=== PATIENT | female | born 1960 | race Caucasian/White ===

== ENCOUNTER 2017-03-10 15:45 | Inpatient (IN) | payer MEDICARE ==
[2017-03-10] MEDS ORDERED: Cefepime(*) 2 GM in NS 0.9% 50 ML* 50 ML IVPB ONE (16:38)
[2017-03-10 16:59] LABS: Urine Bacteria Absent (Absent); Urine Bilirubin Negative (Negative); Urine Glucose Negative (Negative); Urine Nitrite Negative (Negative)
[2017-03-10 17:11] LABS: Hematocrit 36 % (35-47); Mean Corpuscular HGB Conc 31 g/dl (31-36); Mean Corpuscular Hemoglobin 25 pg (27-31); Mean Corpuscular Volume 83 fL (80-97); Mean Platelet Volume 10 um3 (7.4-10.4); Red Blood Count 4.33 10^6/ul (4.0-5.4); Red Cell Distribution Width 16 % (10.5-15); White Blood Count 8.7 10^3/ul (3.5-10.8)
[2017-03-10] MEDS: NS 0.9% 1000 ML* 3,000 ML IV ONE (17:18)
[2017-03-10] MEDS ORDERED: Morphine INJ* 4 MG/ML 1 ML SYRINGE IV ONE (17:22)
[2017-03-10 17:26] LABS: Albumin 3.2 g/dL (3.2-5.2); Calcium 8.4 mg/dL (8.6-10.3); EGFR African American 11.7 (>60); EGFR Non-African American 9.1 (>60); Globulin 3.7 g/dL (2-4); Magnesium 2.2 mg/dL (1.9-2.7); Total Bilirubin 0.2 mg/dL (0.2-1.0); Total Protein 6.9 g/dL (6.4-8.9)
[2017-03-10 17:28] LABS: Troponin I 0.01 ng/mL (<0.04)
[2017-03-10 17:32] LABS: Potassium 6.9 mmol/L (3.5-5.0)
[2017-03-10 17:32] LABS: Benzodiazepine Urine Screen Presumptive Positive (None Detect)
[2017-03-10] MEDS ORDERED: Insulin REGULAR(*) 1 UNITS UNIT IV PUSH ONE (17:42)
[2017-03-10] MEDS ORDERED: Dextrose 50% Syringe 50 ML* 25 GM/50 ML SYRINGE IV PUSH ONE (17:43)
[2017-03-10] MEDS ORDERED: Sodium Bicarbonate 8.4% IV* 50 ML VIAL IV ONE (17:43)
[2017-03-10 18:01] LABS: BUN/Creatinine Ratio 16.9 (8-20); Calcium 7.8 mg/dL (8.6-10.3); EGFR African American 12.7 (>60); EGFR Non-African American 9.8 (>60)
[2017-03-10 18:05] LABS: Potassium 6.8 mmol/L (3.5-5.0)
--- NOTE | 2017-03-10 18:17 | RAD ---
Indication: Confusion. CT of the brain was performed without IV contrast. Ventricular structures are midline. No midline shift is noted. The extra-axial spaces are unremarkable. There is no evidence of mass or hemorrhage. No other high or low density lesions are identified. Mastoid air cells are somewhat hypoplastic although no fluid is noted. The paranasal sinuses are unremarkable. Bony calvaria is unremarkable. IMPRESSION: No intracranial mass or hemorrhage is noted.
--- NOTE | 2017-03-10 18:35 | RAD ---
Indication: Fever, shortness of breath. Single frontal view of the chest performed at 1755 hours was reviewed. No prior study is available for comparison. No mediastinal shift is noted. Heart is of normal size and configuration. Lung king appear clear. IMPRESSION: NO ACTIVE CARDIOPULMONARY DISEASE IS NOTED.
--- NOTE | 2017-03-10 18:51 | RAD ---
Indication: Acute kidney injury. Real-time sonography of the kidneys was performed. The right kidney measures 11.2 x 5.8 x 5.4 cm. No hydronephrosis is noted. There may be tiny calculi noted in the right kidney. The left kidney measures 10.5 x 4.3 x 4.6 cm. No hydronephrosis is noted. IMPRESSION: Suggestion of small nonobstructing calculi in the right kidney. No hydronephrosis of either kidney.
--- NOTE | 2017-03-10 18:54 | ED ---
Isatu Vaughn Alfonso, scribed for Sohail Walton MD on 03/10/17 at 1702 . Altered Mental Status - HPI Summary HPI Summary: This patient is a level 5 caveat due to AMS. This patient is a 57 y.o F [facility] for confusion since earlier today. Family states pt not being herself. She is not oriented to time. Family member reports pt c/o been numb all over, decreased responsiveness, confusion, diarrhea, decreased appetite, and no pain. The diarrhea has since resolved. They also report no headache, cough, or rash. Sx alleviated and aggravated by nothing. [facility] medical record indicates that she overdosed and was intubated. Pt is being treated for UTI two strains of bacteria and antibiotic doses have been recently increased. PMHx of diabetes , CAD, and current broken right shoulder. - History Of Current Complaint Chief Complaint: EDGeneral Stated Complaint: GENERAL ILLNESS Time Seen by Provider: 03/10/17 16:08 Hx Obtained From: Patient, Family/Thai Masseur, Medical Records Onset/Duration: Unknown Timing: Constant Aggravating Factor(s): Nothing Alleviating Factor(s): Nothing Associated Signs And Symptoms: Negative: Nuchal Rigity - Allergies/Home Medications Allergies/Adverse Reactions: Allergies Allergy/AdvReac Type Severity Reaction Status Date / Time Coconut Flavor Allergy Unknown Verified 03/10/17 15:59 Reaction Details Penicillins Allergy Unknown Verified 03/10/17 15:59 Reaction Details Sulfa Antibiotics Allergy Unknown Verified 03/10/17 15:59 Reaction Details seafood Allergy Unknown Uncoded 03/10/17 15:59 Reaction Details PMH/Surg Hx/FS Hx/Imm Hx Endocrine/Hematology History: Reports: Hx Diabetes Cardiovascular History: Reports: Hx Coronary Artery Disease, Hx Hypertension Respiratory History: Reports: Hx Chronic Obstructive Pulmonary Disease (COPD) Sensory History: Denies: Hx Deafness Opthamlomology History: Denies: Hx Legally Blind Infectious Disease History: Unable to Obtain/Confirm Infectious Disease History: Denies: Traveled Outside the [place] in Last 30 Days - Family History Known Family History: Positive: Diabetes - Uncle and Aunt on father's side - Social History Alcohol Use: None Hx Substance Use: No Substance Use Type: Reports: None Hx Tobacco Use: No Smoking Status (MU): Never Smoked Tobacco Review of Systems - ROS Summary Review of Systems Summary: This patient is a level 5 caveat due to AMS. Negative: Cough Positive: Other - Broken right shoulder Negative: Rash Neurological: Other - numb all over, decreased responsiveness, confusion, decreased appetite, and no pain Negative: Headache All Other Systems Reviewed And Are Negative: No Physical Exam - Summary Physical Exam Summary: This patient is a level 5 caveat due to AMS. The patient is well-nourished in mild distress and in no acute pain. The skin is warm, diaphoretic, and skin color reflects adequate perfusion. Not cyanotic. HEENT: The head is normocephalic and atraumatic. The pupils are equal and reactive. The conjunctivae are clear and without drainage. Nares are patent and without drainage. Mouth reveals dry mucous membranes and the throat is without erythema and exudate. The external ears are intact. The ear canals are patent and without drainage. The tympanic membranes are intact. Neck is supple with full range of motion and non-tender. There are no carotid bruits. There is no neck vein distension. No nuchal rigidity. Respiratory: Chest is non-tender. Lungs are clear to auscultation and breath sounds are symmetrical and equal. Cardiovascular: Hear is regular rate and rhythm. There is no murmur or rub auscultated. There is no peripheral edema and pulses are symmetrical and equal. Abdomen: The abdomen is soft and non-tender. There are normal bowel sounds heard in all four quadrants and there is no organomegaly palpated. Obsese Musculoskeletal: There is no back pain noted. Extremities are non-tender with full range of motion. There is good capillary refill. There is no peripheral edema or calf tenderness elicited. Neurological: Patient is alert and oriented to person, and place. Not oriented to time. The patient has symmetrical motor strength in all four extremities. Cranial nerves are grossly intact. Deep tendon reflexes are symmetrical and equal in all four extremities. Psychiatric: The patient is confused, and disoriented. Unable to answer questions and follow commands. Triage Information Reviewed: Yes Vital Signs On Initial Exam: Initial Vitals Temp Pulse Resp BP Pulse Ox 99.2 F 90 20 130/48 97 03/10/17 15:52 03/10/17 15:52 03/10/17 15:52 03/10/17 15:52 03/10/17 15:52 Vital Signs Reviewed: Yes Completion Of Physical Exam Limited Due To: Altered Mental Status Diagnostics - Vital Signs Vital Signs Temp Pulse Resp BP Pulse Ox 03/10/17 16:05 89 113/52 98 03/10/17 16:01 90 98 03/10/17 16:00 98/76 03/10/17 15:52 99.2 F 90 20 130/48 97 - Laboratory Lab Results: Lab Results 03/10/17 Range/Units 16:03 POC Glucose (mg/dL) 208 H (74-106) mg/dL Result Diagrams: 03/10/17 16:55 03/10/17 17:38 Lab Statement: Any lab studies that have been ordered have been reviewed, and results considered in the medical decision making process. - Radiology CXR Xray Interpretation: No Acute Changes Radiology Interpretation Completed By: Radiologist - CT CT Brain CT Interpretation: No Acute Changes - No intracranial mass or hemorrhage noted. CT Interpretation Completed By: Radiologist - EKG 1736 EKG Rhythm: Sinus Rhythm - BPM 91 EKG Interpretation: Poor R wave progression, normal axis Re-Evaluation - Re-Evaluation First Eval Re-Evaluation Time: 18:00 - Discussed blood work and possible plan of care with family members Change: Unchanged Altered Mental Statu Course/Dx - Course Assessment/Plan: Pt presents with confusion and AMS. Upon examination, pt is noted with disorientation in regard to time, and unable to answer questions or follow commands. Family members present at bedside reports persistent UTI with recent increase in abx dose and recent right shoulder fx. Medical records from [facility] also provides further collaterals regarding recent OD and intubation. CT Brain indicates negative intracranial mass or hemorrhage. CXR is also benign. Blood work indicates hyperkalemia of 6.9 and CO2 of 13. UA is noted UTI with 3+ WBC and positive leuk. Bloodwork is shared with hospitalist, who accepts admission of pt. pt was treated for uti initially with Cefapime. pt was given IV fluid. pt was treated with Calcium Gluconate, D50, insulin and sodium bicarbonate. Dr. smalls was notified and agreed to admit the patient. her old records were reviewed. - Diagnoses Differential Diagnosis/HQI/PQRI: Hypoglycemia, Hypoxia, Intracranial Bleed, Medication Reaction, Metabolic Disorder, Sepsis, Other - substance abuse, acute renal failure, hyperkalemia, dehydration, c.diff colitis, UTI Discharge Diagnoses: UTI (urinary tract infection), Acute renal failure, Hyperkalemia, Dehydration, Altered mental status - Provider Notifications Discussed Care Of Patient With: Tami Smalls - Possible admission after the offical CT and CXR imaging readings. Time Discussed With Above Provider: 17:55 Instructed by Provider To: Admit As Inpatient - Critical Care Time Critical Care Time: 30-74 min - 45 Minutes Discharge - Discharge Plan Condition: Stable Disposition: ADMITTED TO [facility] Referrals: No Primary Care Phys,NOPCP [Primary Care Provider] - The documentation as recorded by the Isatu torres Alfonso accurately reflects the service I personally performed and the decisions made by me, Sohail Walton MD.
[2017-03-10] MEDS ORDERED: Calcium Gluconate INJ* 1 GM in NS 0.9% 50 ML* 50 ML IVPB ONE (19:00)
[2017-03-10] MEDS ORDERED: levETIRAcetam TAB* 500 MG PO SCH (21:00)
[2017-03-10 21:22] LABS: BUN/Creatinine Ratio 17.1 (8-20); Calcium 7.9 mg/dL (8.6-10.3); EGFR African American 13.7 (>60); EGFR Non-African American 10.6 (>60)
[2017-03-10] MEDS ORDERED: NS 0.9% 1000 ML* 2,000 ML IV ONE (21:36)
[2017-03-10] MEDS ORDERED: Morphine INJ* 4 MG/ML 1 ML SYRINGE IV PRN (21:38)
[2017-03-10] MEDS: Albuterol/Ipratropium NEB.SOL* Albuterol 2.5 MG/Ipratropium 0.5 MG 3 ML INH SCH (21:58)
[2017-03-10] MEDS: Heparin VIAL(*) 5000 UNITS/ML VIAL (FIVE THOUSAND) SUBCUT SCH (22:24)
[2017-03-10] MEDS: Gabapentin CAP(*) 300 MG PO SCH (23:15)
[2017-03-11] MEDS ORDERED: oxyCODONE TAB* 5 MG TAB PO SCH
[2017-03-11] MEDS: levETIRAcetam 500 MG IVPREMIX* 500 MG/100 ML BAG IV SCH ×3 (00:19→23:44)
[2017-03-11 00:53] LABS: BUN/Creatinine Ratio 19.3 (8-20); EGFR Non-African American 13.3 (>60); Potassium 5.5 mmol/L (3.5-5.0)
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
[2017-03-11] MEDS: Albuterol/Ipratropium NEB.SOL* Albuterol 2.5 MG/Ipratropium 0.5 MG 3 ML INH SCH ×2 (01:35→05:20)
[2017-03-11] MEDS ORDERED: oxyCODONE TAB* 5 MG TAB PO PRN (04:51)
[2017-03-11] MEDS: NS 0.9% 1000 ML* 1,000 ML IV SCH ×4 (05:30→22:51)
[2017-03-11 05:36] LABS: Hematocrit 28 % (35-47); Hemoglobin 8.9 g/dl (12.0-16.0); Mean Corpuscular HGB Conc 31 g/dl (31-36); Mean Corpuscular Hemoglobin 26 pg (27-31); Mean Corpuscular Volume 82 fL (80-97); Mean Platelet Volume 10 um3 (7.4-10.4); Red Blood Count 3.47 10^6/ul (4.0-5.4); Red Cell Distribution Width 16 % (10.5-15); White Blood Count 7.5 10^3/ul (3.5-10.8)
[2017-03-11 05:50] LABS: BUN/Creatinine Ratio 19.8 (8-20); Calcium 7.4 mg/dL (8.6-10.3); EGFR African American 18.4 (>60); EGFR Non-African American 14.3 (>60); Potassium 5.8 mmol/L (3.5-5.0)
[2017-03-11] MEDS: Levothyroxine TAB* 100 MCG TAB PO SCH (05:53)
[2017-03-11] MEDS: Heparin VIAL(*) 5000 UNITS/ML VIAL (FIVE THOUSAND) SUBCUT SCH ×3 (05:53→21:57)
[2017-03-11] MEDS: Levothyroxine TAB* 75 MCG TAB PO SCH (05:53)
[2017-03-11] MEDS ORDERED: Albuterol/Ipratropium NEB.SOL* Albuterol 2.5 MG/Ipratropium 0.5 MG 3 ML INH PRN (08:56)
[2017-03-11] MEDS ORDERED: Levothyroxine TAB (NF) 175 MCG TAB (AUTOSUB 100 MCG + 75 MCG TAB) PO SCH (09:00)
[2017-03-11] MEDS: cefTRIAXone VIAL(*) 1,000 MG in NS 0.9% 50 ML* 50 ML IVPB SCH (09:13)
[2017-03-11] MEDS: Omeprazole CAP* 20 MG PO SCH (09:16)
[2017-03-11] MEDS: amLODIPine TAB* 5 MG PO SCH ×2 (09:16→12:10)
[2017-03-11] MEDS: Atenolol TAB* 50 MG PO SCH (09:16)
[2017-03-11] MEDS: Gabapentin CAP(*) 300 MG PO SCH ×3 (09:16→21:57)
[2017-03-11] MEDS: Insulin LISPRO* 1 UNITS UNIT SUBCUT SCH ×3 (09:17→18:27)
--- NOTE | 2017-03-11 09:59 | PN ---
Subjective Date of Service: 03/11/17 Interval History: This is a 57 yo female with HTN, HLD, mild developmental delay, seizure d/o DM and h/o drug abuse who [facility] a R humeral fx following a hospitalization at [facility]. Patient was found unresponsive with SHYAM and subsequent hyperkalemia. Patient was recently treated for UTI and developed diarrhea. SHYAM thought to be due to hypovolemia and ADELAIDA-I use. Patient has been responsive to voice, able to take oral medications last night. This am, more sedated after requesting pain medications, not taking anything orally. Urine output looks good. No acute changes overnight. Objective Active Medications: Acetaminophen (Tylenol Tab*) 325 mg PO Q6HR PRN PRN Reason: pain Albuterol/Ipratropium (Duoneb (Albuterol 2.5 Mg/Ipratropium 0.5 Mg)) 1 neb INH Q4H PRN PRN Reason: SOB/WHEEZING Alprazolam (Xanax Tab*) 0.25 mg PO TID PRN PRN Reason: ANXIETY Amlodipine Besylate (Norvasc Tab*) 5 mg PO DAILY [facility] Last Admin: 03/11/17 09:16 Dose: 5 mg Atenolol (Tenormin Tab*) 50 mg PO DAILY [facility] Last Admin: 03/11/17 09:16 Dose: 50 mg Gabapentin (Neurontin Cap(*)) 300 mg PO TID [facility] Last Admin: 03/11/17 09:16 Dose: Not Given Heparin Sodium (Porcine) (Heparin Vial(*)) 5,000 units SUBCUT Q8HR [facility] Last Admin: 03/11/17 05:53 Dose: 5,000 units Ceftriaxone Sodium 1,000 mg/ (Sodium Chloride) 50 mls @ 200 mls/hr IVPB Q24H [facility] Last Admin: 03/11/17 09:13 Dose: 200 mls/hr Sodium Chloride (Ns 0.9% 1000 Ml*) 1,000 mls @ 150 mls/hr IV PER RATE [facility] Last Admin: 03/11/17 05:30 Dose: 150 mls/hr Levetiracetam (Keppra Iv Premix*) 500 mg in 100 mls @ 400 mls/hr IV Q12H [facility] Last Admin: 03/11/17 00:19 Dose: 400 mls/hr Insulin Human Lispro (Humalog*) 0 units SUBCUT AC [facility] PRN Reason: Protocol Last Admin: 03/11/17 09:17 Dose: Not Given Levothyroxine Sodium (Synthroid Tab*) 100 mcg PO DAILY@0600 [facility] Last Admin: 03/11/17 05:53 Dose: 100 mcg Levothyroxine Sodium (Synthroid Tab*) 75 mcg PO DAILY@0600 [facility] Last Admin: 03/11/17 05:53 Dose: 75 mcg Morphine Sulfate (Morphine Inj (Syringe)*) 4 mg IV Q4H PRN PRN Reason: PAIN Omeprazole (Prilosec Cap*) 20 mg PO DAILY [facility] Last Admin: 03/11/17 09:16 Dose: 20 mg Oxycodone HCl (Roxycodone Tab*) 5 mg PO Q6HR PRN PRN Reason: PAIN Vital Signs: Temp Pulse Resp BP Pulse Ox 98.9 F 88 12 134/84 93 03/11/17 06:00 03/11/17 08:57 03/11/17 08:57 03/11/17 06:00 03/11/17 08:57 Appearance: Middle aged female who is sedated, but responds to voice and touch. NAD Respiratory: Symmetrical Chest Expansion and Respiratory Effort, Clear to Auscultation Cardiovascular: NL Sounds; No Murmurs; No JVD, RRR Abdominal: NL Sounds; No Tenderness; No Distention Skin: No Rash or Ulcers Neurological: - - sedated, but arousable Result Diagrams: 03/11/17 05:25 03/11/17 05:25 Additional Lab and Data: Laboratory Tests 03/10/17 03/10/17 03/10/17 16:55 17:38 20:55 Potassium 6.9 H* 6.8 H* 6.0 H 03/11/17 03/11/17 00:30 05:25 Potassium 5.5 H 5.8 H Microbiology and Other Data: Microbiology 03/10/17 20:00 Nasal Screen MRSA (PCR)(MARY) - Final Nasal Mrsa Negative Assess/Plan/Problems-Billing Assessment: This is a 57 yo female with mild intellectual disability, sz d/o, HTN, mild MR, h/o drug abuse, DM and recent R humeral fracture admitted with acute encephalopathy, SHYAM, and hyperkalemia. - Patient Problems (1) Acute encephalopathy Comment: Likely metabolic secondary to uremia related to SHYAM Seems to be improving mildly (2) SHYAM (acute kidney injury) Comment: Likely combination of ATN/prerenal from GI losses related to abx use and ADELAIDA-I use Associated acidosis and hyperkalemia Improving with IV hydration, received NaHCO3, calcium gluconate, insulin/D50 in ER No tele changes Cont serial labs and IVF hydration with NS (3) UTI (urinary tract infection) Comment: Cultures pending Tx with ceftriaxone (4) Humeral fracture Comment: Reviewed notes from [facility] and [facility] Appeared to be an incidental finding on imaging Immobilized, no surgical intervention (5) Mild developmental delay (6) H/O drug abuse Comment: Cocaine/opiate abuse Notes from [facility] reported she has been requesting very high doses of opiates during her stay there (7) Diabetes Comment: No home medications Check HgbA1c Monitor glucose finger checks and cover prn with Humalog (8) Full code status (9) DVT prophylaxis Comment: SQ heparin Status and Disposition: Inpatient. Cont ICU level care.
[2017-03-11 12:22] LABS: BUN/Creatinine Ratio 21.7 (8-20); Calcium 6.8 mg/dL (8.6-10.3); EGFR African American 21.7 (>60); EGFR Non-African American 16.8 (>60); Potassium 5.4 mmol/L (3.5-5.0)
[2017-03-11] MEDS ORDERED: Sodium Bicarbonate 8.4%* 50 ML SYRINGE IV ONE (12:38)
[2017-03-11] MEDS: ALPRAZolam TAB* 0.25 MG PO PRN (16:37)
[2017-03-11] MEDS: oxyCODONE TAB* 5 MG TAB PO PRN (16:37)
[2017-03-11] MEDS ORDERED: Vancomycin per Pharmacy* NOTE FOLLOW UP PRN (17:26)
[2017-03-11 17:52] LABS: BUN/Creatinine Ratio 23.6 (8-20); Calcium 7.5 mg/dL (8.6-10.3); EGFR African American 22.9 (>60); EGFR Non-African American 17.8 (>60); Potassium 5.7 mmol/L (3.5-5.0)
[2017-03-11] MEDS ORDERED: Vancomycin(*) 1,250 MG in NS 0.9% 250 ML* 250 ML IVPB ONE (18:00)
[2017-03-11] MEDS ORDERED: Dextrose 50% Syringe 50 ML* 25 GM/50 ML SYRINGE IV PUSH ONE (18:15)
[2017-03-11] MEDS ORDERED: Dextrose 50% Syringe 50 ML* 25 GM/50 ML SYRINGE ONE (18:21)
[2017-03-11 20:22] LABS: TSH (Thyroid Stimulating Horm) 0.96 mcIU/mL (0.34-5.60)
--- NOTE | 2017-03-11 20:26 | RAD ---
INDICATION: Traumatic fracture of the right shoulder. COMPARISON: There are no prior studies available for comparison. TECHNIQUE: 3 views of the right shoulder were obtained. FINDINGS: The humeral head appears subluxed inferior relative to the glenoid process of the scapula. There is a comminuted fracture of the proximal humeral metaphysis and head. This is somewhat unusual with displaced fracture fragments located both superior and inferior medial to the humeral head and metaphysis. Incidental note is made of an os acromiale. IMPRESSION: 1. INFERIOR SUBLUXATION OF THE HUMERAL HEAD. 2. COMMINUTED DISPLACED FRACTURE OF THE HUMERAL HEAD AND METAPHYSIS NOT WELL-DEFINED ON THIS STUDY. RECOMMEND A CT OF THE RIGHT SHOULDER FOR FURTHER EVALUATION.
[2017-03-11 20:29] LABS: Free T4 1.46 ng/dL (0.61-1.12)
[2017-03-11 20:38] LABS: BUN/Creatinine Ratio 24.7 (8-20); Calcium 7.3 mg/dL (8.6-10.3); EGFR African American 26.6 (>60); EGFR Non-African American 20.7 (>60)
[2017-03-11 20:46] LABS: Potassium 5.4 mmol/L (3.5-5.0)
[2017-03-12] MEDS: oxyCODONE TAB* 5 MG TAB PO PRN ×4 (00:16→21:11)
[2017-03-12 01:10] LABS: Blood Urea Nitrogen 54 mg/dL (6-24); CO2 Carbon Dioxide 17 mmol/L (22-32); Calcium 7.4 mg/dL (8.6-10.3); Chloride 125 mmol/L (101-111); EGFR African American 31.8 (>60); EGFR Non-African American 24.7 (>60); Glucose 167 mg/dL (70-100); Sodium 144 mmol/L (133-145)
[2017-03-12 05:15] LABS: BUN/Creatinine Ratio 26.5 (8-20); Blood Urea Nitrogen 48 mg/dL (6-24); CO2 Carbon Dioxide 17 mmol/L (22-32); Calcium 7.1 mg/dL (8.6-10.3); Chloride 123 mmol/L (101-111); EGFR African American 37.3 (>60); Glucose 191 mg/dL (70-100); Sodium 142 mmol/L (133-145)
[2017-03-12] MEDS ORDERED: Vancomycin Random Level* NOTE FOLLOW UP ONE (06:00)
[2017-03-12] MEDS: Heparin VIAL(*) 5000 UNITS/ML VIAL (FIVE THOUSAND) SUBCUT SCH ×3 (06:06→21:11)
[2017-03-12] MEDS: Levothyroxine TAB* 75 MCG TAB PO SCH (06:06)
[2017-03-12] MEDS: Levothyroxine TAB* 100 MCG TAB PO SCH (06:06)
[2017-03-12] MEDS: NS 0.9% 1000 ML* 1,000 ML IV SCH ×2 (06:09→16:51)
[2017-03-12] MEDS: Insulin LISPRO* 1 UNITS UNIT SUBCUT SCH ×3 (08:19→16:48)
[2017-03-12] MEDS ORDERED: Vancomycin(*) 1,250 MG in NS 0.9% 250 ML* 250 ML IVPB SCH (08:30)
[2017-03-12] MEDS: cefTRIAXone VIAL(*) 1,000 MG in NS 0.9% 50 ML* 50 ML IVPB SCH (08:34)
[2017-03-12] MEDS: Atenolol TAB* 50 MG PO SCH (08:35)
[2017-03-12] MEDS: amLODIPine TAB* 5 MG PO SCH (08:35)
[2017-03-12] MEDS: Gabapentin CAP(*) 300 MG PO SCH ×3 (08:35→19:24)
[2017-03-12] MEDS: Omeprazole CAP* 20 MG PO SCH (08:35)
--- NOTE | 2017-03-12 08:35 | PN ---
Subjective Date of Service: 03/12/17 Interval History: Patient's mental status has improved, she is still confused about her present situation. But alert and communicative Objective Active Medications: Acetaminophen (Tylenol Tab*) 325 mg PO Q6HR PRN PRN Reason: pain Albuterol/Ipratropium (Duoneb (Albuterol 2.5 Mg/Ipratropium 0.5 Mg)) 1 neb INH Q4H PRN PRN Reason: SOB/WHEEZING Alprazolam (Xanax Tab*) 0.25 mg PO TID PRN PRN Reason: ANXIETY Last Admin: 03/11/17 16:37 Dose: 0.25 mg Amlodipine Besylate (Norvasc Tab*) 5 mg PO DAILY [facility] Last Admin: 03/11/17 12:10 Dose: Not Given Atenolol (Tenormin Tab*) 50 mg PO DAILY [facility] Last Admin: 03/11/17 09:16 Dose: Not Given Gabapentin (Neurontin Cap(*)) 300 mg PO TID [facility] Last Admin: 03/11/17 21:57 Dose: 300 mg Heparin Sodium (Porcine) (Heparin Vial(*)) 5,000 units SUBCUT Q8HR [facility] Last Admin: 03/12/17 06:06 Dose: 5,000 units Ceftriaxone Sodium 1,000 mg/ (Sodium Chloride) 50 mls @ 200 mls/hr IVPB Q24H [facility] Last Admin: 03/11/17 09:13 Dose: 200 mls/hr Sodium Chloride (Ns 0.9% 1000 Ml*) 1,000 mls @ 150 mls/hr IV PER RATE [facility] Last Admin: 03/12/17 06:09 Dose: 150 mls/hr Levetiracetam (Keppra Iv Premix*) 500 mg in 100 mls @ 400 mls/hr IV Q12H [facility] Last Admin: 03/11/17 23:44 Dose: 400 mls/hr Vancomycin HCl 1,250 mg/ (Sodium Chloride) 250 mls @ 166.667 mls/hr IVPB Q12H [facility] Insulin Human Lispro (Humalog*) 0 units SUBCUT AC YURIY PRN Reason: Protocol Last Admin: 03/12/17 08:19 Dose: Not Given Levothyroxine Sodium (Synthroid Tab*) 100 mcg PO DAILY@0600 [facility] Last Admin: 03/12/17 06:06 Dose: 100 mcg Levothyroxine Sodium (Synthroid Tab*) 75 mcg PO DAILY@0600 [facility] Last Admin: 03/12/17 06:06 Dose: 75 mcg Morphine Sulfate (Morphine Inj (Syringe)*) 4 mg IV Q4H PRN PRN Reason: PAIN Omeprazole (Prilosec Cap*) 20 mg PO DAILY [facility] Last Admin: 03/11/17 09:16 Dose: Not Given Oxycodone HCl (Roxycodone Tab*) 5 mg PO Q6HR PRN PRN Reason: PAIN Last Admin: 03/12/17 00:16 Dose: 5 mg Pharmacy Consult (Vancomycin Per Pharmacy*) 1 note FOLLOW UP . PRN PRN Reason: PER PROTOCOL Pharmacy Profile Note (Vancomycin Trough Check) 1 note FOLLOW UP 0800 ONE Stop: 03/14/17 08:01 Vital Signs: Temp Pulse Resp BP Pulse Ox 94.6 F 96 11 140/65 95 03/12/17 07:00 03/12/17 07:00 03/12/17 07:00 03/12/17 07:00 03/12/17 07:00 Appearance: Well appearing middle aged female in NAD Respiratory: Symmetrical Chest Expansion and Respiratory Effort, Clear to Auscultation Cardiovascular: NL Sounds; No Murmurs; No JVD, RRR Abdominal: NL Sounds; No Tenderness; No Distention Extremities: No Edema Neurological: - - alert, somewhat confused, tangential thoughts, somewhat paranoid Result Diagrams: 03/11/17 05:25 03/12/17 06:25 Additional Lab and Data: Laboratory Tests 03/10/17 03/10/17 03/10/17 16:55 17:38 20:55 Potassium 6.9 H* 6.8 H* 6.0 H 03/11/17 03/11/17 00:30 05:25 Potassium 5.5 H 5.8 H Microbiology and Other Data: Microbiology 03/10/17 20:00 Nasal Screen MRSA (PCR)(MARY) - Final Nasal Mrsa Negative Diagnostic Imaging: XR shoulder - comminuted and displaced fracture of humeral head with subluxation Assess/Plan/Problems-Billing Assessment: This is a 57 yo female with mild intellectual disability, sz d/o, HTN, mild MR, h/o drug abuse, DM and recent R humeral fracture admitted with acute encephalopathy, SHYAM, and hyperkalemia. - Patient Problems (1) Acute encephalopathy Comment: Improving Likely metabolic secondary to uremia related to SHYAM (2) SHYAM (acute kidney injury) Comment: Improving Likely combination of ATN/prerenal from GI losses related to abx use and ADELAIDA-I use Associated acidosis and hyperkalemia Improving with IV hydration, received NaHCO3, calcium gluconate, insulin/D50 in ER No tele changes Cont serial labs and IVF hydration with NS (3) UTI (urinary tract infection) Comment: Initial culture growing S. aureus Added vanco until final sensitivities return (4) Humeral fracture Comment: Reviewed notes from [facility] Appeared to be an incidental finding on imaging Immobilized, no surgical intervention Patient c/o increased pain XR shows comminuted and displaced fracture of humeral head with subluxation, subluxation may be new and responsible for increased pain Requesting more imaging and ortho notes from [facility] Requested ortho consult (5) Hypothyroidism Comment: TSH, free T4 WNL Cont current dose of levothyroxine (6) Mild developmental delay (7) H/O drug abuse Comment: Cocaine/opiate abuse Notes from [facility] reported she has been requesting very high doses of opiates during her stay there (8) Diabetes Comment: No home medications HgbA1c pend Monitor glucose finger checks and cover prn with Humalog (9) Full code status (10) DVT prophylaxis Comment: SQ heparin Status and Disposition: Inpatient. Transfer to telemetry floor from ICU
[2017-03-12] MEDS: levETIRAcetam TAB* 500 MG PO SCH ×2 (08:59→19:24)
[2017-03-12] MEDS: Acetaminophen TAB* 325 MG PO PRN (12:33)
--- NOTE | 2017-03-12 12:57 | RAD ---
Indication: RIGHT shoulder pain. Previous fracture. Assess for extent of fracture healing. Renal failure. Comparison: March 11, 2017 radiographs. Technique: Noncontrast CT RIGHT shoulder. Multiplanar reformation. Report: Normal, clavicular joint alignment. Normal variant os acromiale. Impacted fracture at the surgical through anatomic neck of the humerus with approximate 30 degrees apex anterior angulation. The fracture extends to the lesser and greater tuberosities. Osseous remodeling along the comminuted fracture plane with healing response. The humeral head remains grossly located at the glenoid fossa. Large burden of dystrophic bone formation along the course of the rotator cuff tendons and muscles with involvement of the subscapularis, supraspinatus, infraspinatus, and teres minor. Moderate subscapularis muscle atrophy. IMPRESSION: 1. Healing response at the comminuted impacted surgical through anatomic neck fracture of the humerus. 2. Large burden of dystrophic bone formation along the course of the rotator cuff tendons and muscles with involvement of the subscapularis, supraspinatus, infraspinatus, and teres minor.
--- NOTE | 2017-03-12 13:33 | CONS ---
CONSULTATION REPORT: DATE OF CONSULTATION: 03/12/17 BRIEF HISTORY: I was called by the hospitalist Atul regarding Laura Person , a 57-year-old female who has a proximal humerus fracture that occurred approximately 4 weeks prior to this call. The story, as I have been able to cover in looking at the Ta note, is that the patient was initially seen at [facility] on or about 02/10/17. She was found unresponsive allegedly at her home by her father and was having seizure-like activity. She had no previous history of seizure. According to the note, she was taken to [facility] where she was agitated and received Haldol and her urine drug screen came back positive for cocaine as well as "benzos and opiates." She was in respiratory distress and she was hypertensive and tachypneic and she was subsequently transferred to [facility] by helicopter. She was intubated and treated. During the course of her hospitalization at [facility], it was noted that she had an orthopedic injury. She was seen and evaluated by physician pediatric physical therapy assistant, Mp Clarke, who was supervised by upper extremity specialist and packer fuser of the orthopedic department, Dr. Kendrick Thorne. The x-ray evaluation revealed a 3-part proximal humerus fracture that was comminuted and intraarticular. The orthopedic plan at that time according to Mp Clarke's note was that the right upper extremity was in good alignment and she had a good radial pulse. The plan was for her to be treated with a sling and that she would have repeat x-rays in 5 to 7 days and surgical intervention was not entertained at that time. She was apparently lost to followup in [place], that is she for whatever reason did not seek further followup in [place] and presented at [facility] whereupon Dr. Pollard gave me a call. I took a look at the x-rays. I was speaking to Dr. Pollard and indeed, the patient does have a comminuted 3-part proximal humerus fracture that I believe at this point is most likely not amenable to open reduction internal fixation and is more likely amenable to a proximal humerus replacement. I explained to Dr. Pollard that that is not a procedure that I perform and however, I will be more than happy to facilitate the patient being seen by one of my orthopedic partners upon the patient's discharge. Dr. Pollard stated that she believes the patient wish to stay in the [facility] and with that I suggested that if that was the case, then Dr. Pollard contact one of the [facility] orthopedists that specializes in upper extremity/ shoulder care and at this point I believe Dr. Pollard will take my suggestion. If the [facility] orthopedic surgeons do not wish to be involved with the case, I am more than happy to make Dr. Thorne aware that the patient is still in need of care and will make every effort to get the patient to be seen and treated by Dr. Kendrick Thorne, our shoulder specialist. [id number]/CPS #: [id number] MTDD
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
[2017-03-12] MEDS: ALPRAZolam TAB* 0.25 MG PO PRN (19:24)
[2017-03-13] MEDS: NS 0.9% 1000 ML* 1,000 ML IV SCH ×2 (01:07→09:12)
[2017-03-13] MEDS: Acetaminophen TAB* 325 MG PO PRN ×2 (01:37→08:30)
[2017-03-13] MEDS: oxyCODONE TAB* 5 MG TAB PO PRN (03:10)
[2017-03-13] MEDS: ALPRAZolam TAB* 0.25 MG PO PRN (04:03)
[2017-03-13] MEDS: Levothyroxine TAB* 100 MCG TAB PO SCH (05:03)
[2017-03-13] MEDS: Levothyroxine TAB* 75 MCG TAB PO SCH (05:03)
[2017-03-13] MEDS: Heparin VIAL(*) 5000 UNITS/ML VIAL (FIVE THOUSAND) SUBCUT SCH (05:04)
[2017-03-13 05:43] LABS: BUN/Creatinine Ratio 25.5 (8-20); Calcium 7.3 mg/dL (8.6-10.3); EGFR African American 75.8 (>60); EGFR Non-African American 58.9 (>60); Potassium 4.1 mmol/L (3.5-5.0)
[2017-03-13] MEDS: Insulin LISPRO* 1 UNITS UNIT SUBCUT SCH ×2 (08:20→12:00)
[2017-03-13] MEDS: Omeprazole CAP* 20 MG PO SCH (08:30)
[2017-03-13] MEDS: levETIRAcetam TAB* 500 MG PO SCH (08:30)
[2017-03-13] MEDS: amLODIPine TAB* 5 MG PO SCH (08:30)
[2017-03-13] MEDS: Gabapentin CAP(*) 300 MG PO SCH (08:31)
[2017-03-13] MEDS: cefTRIAXone VIAL(*) 1,000 MG in NS 0.9% 50 ML* 50 ML IVPB SCH (08:43)
[2017-03-13] MEDS: Atenolol TAB* 50 MG PO SCH (08:44)
[2017-03-13] MEDS ORDERED: oxyCODONE TAB* 5 MG TAB PO PRN (09:58)
[2017-03-13 10:48] VITALS: BP 149/69
--- NOTE | 2017-03-13 11:28 | DS ---
CC: [facility]; Dr. Fajardo * DATE OF ADMISSION: 03/10/2017. DATE OF DISCHARGE: 03/13/2017. PRIMARY CARE PROVIDER: Not listed. CONSULTING ORTHOPEDIC SURGEON: Dr. Fajardo. DISCHARGING PROVIDER: SEDRICK Hendrix. SUPERVISING PHYSICIAN: Dr. Kai Phillips *(dictated by SEDRICK Hendrix). PRIMARY DISCHARGE DIAGNOSES: 1. Acute metabolic encephalopathy secondary to uremia secondary to acute kidney injury. 2. Acute kidney injury - likely a combination of prerenal and ATN for excessive GI losses in conjunction with continued use of ADELAIDA inhibitor. 3. Metabolic acidosis secondary to acute kidney injury. 4. Hyperkalemia secondary to acute kidney injury. 5. Recent urinary tract infection - no significant growth on urine culture during this hospitalization. SECONDARY DISCHARGE DIAGNOSES: 1. Right humeral head fracture - this injury is about four weeks, recognized incidentally during her prior hospitalization at [facility]. Evaluated by Orthopedic team during her hospital stay here and she requires further outpatient follow-up to discuss surgical options. 2. Hypothyroidism with normal TSH and free T4. 3. Mild developmental delay. 4. History of drug abuse. 5. Diabetes with a hemoglobin A1c of 6.9 percent. 6. Seizure disorder - stable. DISCHARGE MEDICATIONS: 1. Acetaminophen 325 mg p.o. q.6 hours as needed for pain or fever. 2. DuoNeb inhaled q.4 hours as needed for shortness of breath. 3. Xanax 0.25 mg p.o. 3 times daily as needed for anxiety. 4. Amlodipine 5 mg p.o. daily. 5. Atenolol 50 mg p.o. daily. 6. Enalapril 10 mg p.o. twice daily. 7. Gabapentin 300 mg p.o. t.i.d. 8. Regular insulin on a sliding scale at mealtime. 9. Keppra 500 mg p.o. b.i.d. 10. Levothyroxine 200 mcg p.o. daily. 11. Oxycodone 15 mg p.o. q.6 hours as needed for pain. 12. Protonix 40 mg p.o. daily. Medication changes: None. HOSPITAL IMAGIN. Chest x-ray shows no acute process. 2. CT of the brain shows no intracranial mass or hemorrhage. 3. Renal ultrasound shows small nonobstructing calculi in the right kidney, no hydronephrosis. 4. Shoulder x-ray shows inferior subluxation of the humeral head and a comminuted displaced fracture of the humeral head and metaphysis, not well defined on this study. 5. Right upper extremity CT demonstrates healing response at the comminuted impacted surgical through anatomic neck fracture of the humerus with a large burden of dystrophic bone formation along the course of the rotator cuff tendons and muscles. HOSPITAL COURSE: This is a 57-year-old female with mild developmental delay, as well as a seizure disorder, hypertension, hyperlipidemia, and diabetes with a documented history of drug abuse who was residing at [facility] for rehab, who presented to the emergency department largely unresponsive. The patient had developed a urinary tract infection several days prior to admission and was started on antibiotics from which she developed severe diarrhea. The patient is chronically on Enalapril which was continued during her episode of diarrhea. When she reached the emergency department, her initial labs included a potassium of 6.9 with a bicarb of 13, BUN of 79 and a creatinine close to 5. Her CBC was unremarkable. The patient was subsequently admitted to ICU with what was likely a uremic encephalopathy and severe acute kidney injury, likely secondary to some prerenal disease secondary to hypovolemia from recent GI losses and some ATN from continued ADELAIDA inhibitor use in that setting. The patient was initially treated with insulin and D50, as well as calcium gluconate and hydrated with normal saline. Her renal function and potassium slowly improved as did her bicarb. She did require three amps of bicarb until her renal function improved. Her mental status slowly improved as well. She was initially quite confused after her level of alertness started to come around , but at the time of discharge she is alert and back to her prior baseline. In regards to her right shoulder injury, her parents, who visited her in the hospital, stated that there was no follow-up plan in place and the right shoulder injury had been noted incidentally on imaging during her recent hospitalization at [facility], at which point she was found unresponsive and transferred to [facility] for acute respiratory failure and subsequently intubated. She was discharged from there to [facility] in [place] and then transferred to [facility]'s facility. Her shoulder has been largely immobilized since discharge, which was approximately four weeks ago. Her parents noted that she has been complaining of increased amounts of pain despite time passing since the fracture was first identified. For this reason, x-ray of the right shoulder was obtained which initially demonstrated what looked like a subluxed right femoral head with comminuted and displaced fracture. Requested Orthopedic Surgery consultation. CT of the area was completed which did not show subluxation or dislocation, but did show a comminuted and slightly angulated fracture. Case was discussed with Dr. Fajardo who suggested that surgical intervention would be indicated if she is an appropriate medical candidate, which she appears to be after this acute episode has resolved. Plan to see her in the outpatient setting in follow-up in approximately one week following discharge for further surgical planning. DISPOSITION AND FOLLOW-UP PLAN: The patient is being discharged back to [facility] for further rehab. Orthopedics advises continuing nonweightbearing status in the right upper extremity, but can start to work on some range of motion as tolerated. Follow-up appointment has been arranged with Dr. Fajardo for next Saturday and this has been communicated to the patient and her family. Her renal function and potassium have returned to normal at the time of discharge. She can resume all home medications, including her ADELAIDA inhibitor, but would recommend repeating a basic metabolic panel in approximately one week or holding the ADELAIDA inhibitor if she continues to have diarrhea once returning home, but this seems to have resolved during her hospital stay. SEDRICK HENDRIX [id number]/[facility] #: [id number] ALVARO
[2017-03-14] MEDS ORDERED: Vancomycin Trough Check NOTE FOLLOW UP ONE (08:00)
== END 2017-03-13 13:29 | DRG 70 ==
LOC: ED 15:45 → ICU 19:21 → MEDTELE 03-12 16:07
PROVIDERS: ADMIT Internal Medicine; ATTEND Physician Assistant
DX: G93.41 Metabolic encephalopathy (principal); N17.0 Acute kidney failure with tubular necrosis; E87.2 Acidosis; N39.0 Urinary tract infection, site not specified; E87.5 Hyperkalemia; E03.9 Hypothyroidism, unspecified; R62.50 Unspecified lack of expected normal physiological development in childhood; G40.909 Epilepsy, unspecified, not intractable, without status epilepticus; E78.5 Hyperlipidemia, unspecified; I10 Essential (primary) hypertension; E86.1 Hypovolemia; K21.9 Gastro-esophageal reflux disease without esophagitis; J44.9 Chronic obstructive pulmonary disease, unspecified; S42.201D Unspecified fracture of upper end of right humerus, subsequent encounter for fracture with routine healing; V49.9XXD Car occupant (driver) (passenger) injured in unspecified traffic accident, subsequent encounter; F41.9 Anxiety disorder, unspecified; G89.29 Other chronic pain; E11.40 Type 2 diabetes mellitus with diabetic neuropathy, unspecified; F19.21 Other psychoactive substance dependence, in remission; Z79.891 Long term (current) use of opiate analgesic; Z79.899 Other long term (current) drug therapy; Z82.3 Family history of stroke; Z80.1 Family history of malignant neoplasm of trachea, bronchus and lung; Z82.5 Family history of asthma and other chronic lower respiratory diseases
CPT/HCPCS: 36415; 70450; 71010; 76775; 80048; 80053; 80202; 80307; 81003; 81015; 82140; 83036; 83605; 83735; 84439; 84443; 84484; 85025; 87040; 87077; 87086; 87186; 87641; 93005; 94640; 94760; A9270-GY; J0610; J0692; J0696; J1644; J2270; J3370

== ENCOUNTER 2021-07-18 17:26 | Inpatient (IN) ==
[2021-07-18] MEDS ORDERED: Lactated Ringers 1000 ml BAG 1,000 ML IV ONE ×2 (18:07→23:03)
[2021-07-18 19:17] LABS: Hematocrit 31 % (35-47); Hemoglobin 9.9 g/dL (12.0-16.0); Mean Corpuscular HGB Conc 32 g/dL (31-36); Mean Corpuscular Hemoglobin 27 pg (27-31); Mean Corpuscular Volume 85 fL (80-97); Mean Platelet Volume 8.7 fL (7.4-10.4); Platelet Count 143 10^3/uL (150-450); Red Blood Count 3.64 10^6 /uL (3.70-4.87); Red Cell Distribution Width 16 % (10-15); White Blood Count 12.6 10^3/uL (3.5-10.8)
[2021-07-18 19:25] LABS: INR 1.04 (0.86-1.15)
[2021-07-18 19:32] LABS: ALT 14 U/L (7-52); AST 18 U/L (13-39); Albumin 3.3 g/dL (3.2-5.2); Albumin/Globulin Ratio 0.8 (1-3); Alkaline Phosphatase 166 U/L (35-149); Anion Gap 11 mmol/L (2-11); Blood Urea Nitrogen 54 mg/dL (6-24); C Reactive Protein 97.53 mg/L (<8.01); CO2 Carbon Dioxide 19 mmol/L (22-32); Calcium 6.5 mg/dL (8.6-10.3); Chloride 108 mmol/L (101-111); Glucose 244 mg/dL (70-100); Potassium 4.8 mmol/L (3.5-5.0); Sodium 138 mmol/L (135-145); Total Protein 7.3 g/dL (6.4-8.9)
[2021-07-18 19:51] LABS: Troponin I 0.03 ng/mL (<0.03)
[2021-07-18 20:00] LABS: ABS Basophils 0.1 10^3/ul (0-0.2); ABS Eosinophils 0.1 10^3/ul (0-0.6); ABS Lymphocytes 1.4 10^3/ul (1.0-4.8); ABS Monocytes 0.4 10^3/ul (0-0.8); ABS Neutrophils 10.6 10^3/ul (1.5-7.7); Eosinophil % 0.9 %; Lymphocyte % 10.8 %; Nucleated Red Blood Cells % 0.3
[2021-07-18 21:14] LABS: PCO2 Arterial 50 mmHg (35-45); PO2 Arterial 84 mmHg (80-100)
[2021-07-18 21:25] LABS: Urine Appearance Cloudy; Urine Bilirubin Negative (Negative); Urine Blood 1+ (Negative); Urine Color Yellow; Urine Glucose 3+(>=500 mg/dL) (Negative); Urine Ketones Negative (Negative); Urine Nitrite Negative (Negative); Urine Protein 3+(>=500 mg/dL) (Negative); Urine Specific Gravity 1.009 (1.002-1.030); Urine Urobilinogen Negative (Negative)
[2021-07-18 21:34] LABS: Rapid COVID-19 Molecular Undetected (Undetected)
[2021-07-18 21:36] LABS: Urine Bacteria Absent (Absent); Urine Red Blood Cell 1+(3-5/hpf) (Absent); Urine Squamous Epithelial Cell Present (Absent); Urine White Blood Cell Trace(0-5/hpf) (Absent)
[2021-07-18] MEDS ORDERED: Dextrose 50% Syringe 50 ml 25 GM/50 ML SYRINGE IV PUSH PRN ×2 (23:04→23:07)
[2021-07-19 00:36] LABS: Troponin I 0.03 ng/mL (<0.03)
[2021-07-19] MEDS ORDERED: Cefepime 1 GM IV - ED ONCE IV ONE (00:41)
[2021-07-19 02:32] LABS: Urine Benzodiazepine Screen None Detected (None Detect); Urine Cannabinoids Screen None Detected (None Detect); Urine Opiates Screen None Detected (None Detect)
[2021-07-19 06:11] LABS: Anion Gap 9 mmol/L (2-11); Blood Urea Nitrogen 52 mg/dL (6-24); CO2 Carbon Dioxide 20 mmol/L (22-32); Chloride 110 mmol/L (101-111); Glucose 151 mg/dL (70-100); Potassium 4.2 mmol/L (3.5-5.0); Sodium 139 mmol/L (135-145)
[2021-07-19] MEDS: Heparin 5000 UNITS/ML 1 mL VIAL SUBCUT SCH ×3 (06:13→20:49)
[2021-07-19 06:20] LABS: Hematocrit 28 % (35-47); Hemoglobin 8.9 g/dL (12.0-16.0); Mean Corpuscular HGB Conc 32 g/dL (31-36); Mean Corpuscular Hemoglobin 27 pg (27-31); Mean Corpuscular Volume 84 fL (80-97); Mean Platelet Volume 8.6 fL (7.4-10.4); Platelet Count 123 10^3/uL (150-450); Red Blood Count 3.26 10^6 /uL (3.70-4.87); Red Cell Distribution Width 16 % (10-15); White Blood Count 9.3 10^3/uL (3.5-10.8)
[2021-07-19 06:42] LABS: Calcium 6.3 mg/dL (8.6-10.3)
[2021-07-19 07:28] LABS: Phosphorus 5.9 mg/dL (2.5-5.0)
[2021-07-19 07:56] LABS: Calcium (PTH Intact) 6.3 mg/dL (8.6-10.3)
[2021-07-19 08:10] LABS: Venous Bicarbonate HCO3 16.6 mmol/L (24-28)
[2021-07-19] MEDS: Lactated Ringers 1000 ml BAG 1,000 ML IV SCH ×2 (08:18→16:55)
[2021-07-19 09:25] LABS: Erythrocyte Sed Rate 110 mm/Hr (0-29)
[2021-07-19] MEDS ORDERED: CALCIUM GLUCONATE 1GM/50ML NS 1 GM/50 ML BAG IV ONE ×2 (09:57→13:35)
[2021-07-19] MEDS ORDERED: Flu vaccine *QUAD* 2021-22* 0.5 ML SYRINGE IM ONE (10:15)
[2021-07-19 11:24] LABS: Vitamin D Total 25(OH) < 7.0 ng/mL (20-50)
[2021-07-19] MEDS: Cholecalciferol (VIT D3) 1,000 unit TAB PO SCH (15:32)
[2021-07-19 17:52] LABS: Urine Creatinine 74.32 mg/dL; Urine Creatinine Concentration 74.32 mg/dL
[2021-07-19 18:04] LABS: Urine Creatinine 82.96 mg/dL; Urine Creatinine Concentration 82.96 mg/dL
[2021-07-19 18:34] LABS: UR Microalbumin (mg/L) 978.6 mg/L; Urine Microalbumin/Creatinine 1316.7 (<31)
[2021-07-19 18:40] LABS: UR Microalbumin (mg/L) 926.1 mg/L; Urine Microalbumin/Creatinine 1116.3 (<31)
[2021-07-19] MEDS: cefTRIAXone 1 gm/50 mL NS BAG 1 GM/50 ML BAG IVPB SCH (20:49)
[2021-07-19] MEDS: DOXYcycline 100 MG in NS 0.9% 250 ml 250 ML IVPB SCH (23:38)
[2021-07-20] MEDS ORDERED: Cefepime 1 GM in Dextrose 1 GM/50 ML BAG IV SCH (01:00)
[2021-07-20 05:54] LABS: PCO2 Arterial 39 mmHg (35-45); PO2 Arterial 70 mmHg (80-100)
[2021-07-20] MEDS: Heparin 5000 UNITS/ML 1 mL VIAL SUBCUT SCH ×3 (05:56→21:12)
[2021-07-20 06:06] LABS: ABS Basophils 0.1 10^3/ul (0-0.2); ABS Eosinophils 0.3 10^3/ul (0-0.6); ABS Lymphocytes 1.2 10^3/ul (1.0-4.8); ABS Monocytes 0.3 10^3/ul (0-0.8); ABS Neutrophils 5.1 10^3/ul (1.5-7.7); Eosinophil % 3.9 %; Hematocrit 27 % (35-47); Hemoglobin 8.7 g/dL (12.0-16.0); Lymphocyte % 17.1 %; Mean Corpuscular HGB Conc 33 g/dL (31-36); Mean Corpuscular Hemoglobin 27 pg (27-31); Mean Corpuscular Volume 83 fL (80-97); Mean Platelet Volume 8.4 fL (7.4-10.4); Platelet Count 128 10^3/uL (150-450); Red Cell Distribution Width 16 % (10-15); White Blood Count 6.9 10^3/uL (3.5-10.8)
[2021-07-20] MEDS ORDERED: CALCIUM GLUCONATE 1GM/50ML NS 1 GM/50 ML BAG IV ONE (06:07)
[2021-07-20 06:20] LABS: Albumin 2.9 g/dL (3.2-5.2); Albumin/Globulin Ratio 0.8 (1-3); Calcium 6.5 mg/dL (8.6-10.3); Globulin 3.7 g/dL (2-4); Magnesium 1.6 mg/dL (1.9-2.7); Phosphorus 5.3 mg/dL (2.5-5.0); Total Bilirubin 0.2 mg/dL (0.2-1.0); Total Protein 6.6 g/dL (6.4-8.9)
[2021-07-20] MEDS ORDERED: Magnesium Sulfate 2 gm BAG 2 GM/50 ML BAG IVPB ONE (07:42)
[2021-07-20] MEDS: Cholecalciferol (VIT D3) 1,000 unit TAB PO SCH (08:21)
[2021-07-20] MEDS: DOXYcycline 100 MG in NS 0.9% 250 ml 250 ML IVPB SCH ×2 (09:56→22:22)
[2021-07-20 15:50] LABS: Calcium 6.9 mg/dL (8.6-10.3); Phosphorus 5.4 mg/dL (2.5-5.0); Potassium 3.8 mmol/L (3.5-5.0)
[2021-07-20] MEDS: cefTRIAXone 1 gm/50 mL NS BAG 1 GM/50 ML BAG IVPB SCH (21:13)
[2021-07-21] MEDS: Heparin 5000 UNITS/ML 1 mL VIAL SUBCUT SCH ×3 (05:57→21:01)
[2021-07-21 07:32] LABS: Calcium 6.8 mg/dL (8.6-10.3); Magnesium 1.9 mg/dL (1.9-2.7); Phosphorus 5.2 mg/dL (2.5-5.0); Potassium 3.6 mmol/L (3.5-5.0)
[2021-07-21] MEDS ORDERED: CALCIUM GLUCONATE 1GM/50ML NS 1 GM/50 ML BAG IV ONE (08:07)
[2021-07-21] MEDS: DOXYcycline 100 MG in NS 0.9% 250 ml 250 ML IVPB SCH ×2 (09:58→23:12)
[2021-07-21 10:15] LABS: Myeloperoxidase Antibody <0.2 U; Proteinase 3 <0.2 U
[2021-07-21] MEDS ORDERED: Prochlorperazine 5 mg/ml 2 ml VIAL (10 mg) IV PRN (10:55)
[2021-07-21] MEDS ORDERED: Potassium Chlor 20 meq TAB.ER PO ONE (12:02)
[2021-07-21 12:35] LABS: Kappa Free Light Chain 11.7 mg/dL; Lambda Free Light Chain, S 12.1 mg/dL
[2021-07-21 13:02] LABS: ds DNA Ab w/ Reflex < 12.3 IU/mL
[2021-07-21 14:49] LABS: Albumin 2.3 g/dL (3.4-4.7); Albumin/Globulin Ratio 0.62
[2021-07-21] MEDS: cefTRIAXone 1 gm/50 mL NS BAG 1 GM/50 ML BAG IVPB SCH (21:09)
[2021-07-22] MEDS: Heparin 5000 UNITS/ML 1 mL VIAL SUBCUT SCH ×3 (05:26→20:38)
[2021-07-22 07:06] LABS: ABS Eosinophils 0.2 10^3/ul (0-0.6); ABS Lymphocytes 1.2 10^3/ul (1.0-4.8); ABS Monocytes 0.3 10^3/ul (0-0.8); ABS Neutrophils 2.9 10^3/ul (1.5-7.7); Eosinophil % 4.8 %; Hematocrit 26 % (35-47); Hemoglobin 8.7 g/dL (12.0-16.0); Lymphocyte % 26.1 %; Mean Corpuscular HGB Conc 33 g/dL (31-36); Mean Corpuscular Hemoglobin 28 pg (27-31); Mean Corpuscular Volume 84 fL (80-97); Mean Platelet Volume 8.3 fL (7.4-10.4); Platelet Count 132 10^3/uL (150-450); Red Blood Count 3.14 10^6 /uL (3.70-4.87); Red Cell Distribution Width 16 % (10-15); White Blood Count 4.7 10^3/uL (3.5-10.8)
[2021-07-22 07:25] LABS: Calcium 6.9 mg/dL (8.6-10.3); Magnesium 1.7 mg/dL (1.9-2.7); Potassium 3.3 mmol/L (3.5-5.0)
[2021-07-22] MEDS ORDERED: Potassium Chloride LIQUID 20 MEQ/15 ML LIQUID PO ONE (07:49)
[2021-07-22] MEDS ORDERED: Magnesium Sulfate 2 gm BAG 2 GM/50 ML BAG IVPB ONE (07:49)
[2021-07-22] MEDS ORDERED: CALCIUM GLUCONATE 1GM/50ML NS 1 GM/50 ML BAG IV ONE (08:30)
[2021-07-22] MEDS: DOXYcycline 100 MG in NS 0.9% 250 ml 250 ML IVPB SCH (11:18)
[2021-07-22 15:45] LABS: Calcium 7.4 mg/dL (8.6-10.3); Magnesium 2.1 mg/dL (1.9-2.7); Phosphorus 3.6 mg/dL (2.5-5.0); Potassium 3.4 mmol/L (3.5-5.0)
[2021-07-22] MEDS ORDERED: Potassium Chlor 20 meq TAB.ER PO ONE (16:53)
[2021-07-22] MEDS: Buprenorp/Nalox 8-2 MG SL TAB PO SCH (20:33)
[2021-07-22] MEDS: cefTRIAXone 1 gm/50 mL NS BAG 1 GM/50 ML BAG IVPB SCH (20:45)
[2021-07-23] MEDS: Heparin 5000 UNITS/ML 1 mL VIAL SUBCUT SCH ×3 (04:34→21:07)
[2021-07-23 05:39] LABS: Calcium 7.4 mg/dL (8.6-10.3); Phosphorus 4.3 mg/dL (2.5-5.0)
[2021-07-23] MEDS: Buprenorp/Nalox 8-2 MG SL TAB PO SCH (07:51)
[2021-07-23] MEDS ORDERED: Lactated Ringers 1000 ml BAG 1,000 ML IV SCH ×2 (08:00→20:00)
[2021-07-23] MEDS: Buprenorp/Nalox 2-0.5 mg SL TB SL PRN ×2 (15:04→21:01)
[2021-07-23 18:37] LABS: Potassium 4.4 mmol/L (3.5-5.0)
[2021-07-23] MEDS: cefTRIAXone 1 gm/50 mL NS BAG 1 GM/50 ML BAG IVPB SCH (19:34)
[2021-07-23] MEDS ORDERED: Sodium Bicarb 650 mg (ANTACID) TAB PO ONE (19:39)
[2021-07-24] MEDS: Heparin 5000 UNITS/ML 1 mL VIAL SUBCUT SCH ×3 (06:16→20:19)
[2021-07-24 06:52] LABS: Calcium 7.6 mg/dL (8.6-10.3); Potassium 4.3 mmol/L (3.5-5.0)
[2021-07-24] MEDS: Buprenorp/Nalox 8-2 MG SL TAB PO SCH (08:05)
[2021-07-24] MEDS: Buprenorp/Nalox 2-0.5 mg SL TB SL PRN ×2 (12:59→17:12)
[2021-07-24 14:30] LABS: Albumin 2.1 g/dL (3.4-4.7); Albumin/Globulin Ratio 0.56; Gamma Globulin 1.1 g/dL (0.6-1.6); Total Protein(PEP) 5.8 g/dL (6.3 - 7.9)
[2021-07-24 16:22] LABS: Albumin/Globulin Ratio 1.02; Protein,Total, Random Urine 314 mg/dL
[2021-07-24] MEDS: Albuterol/Ipratropium NEB.SOL (2.5/0.5 MG) 3 ML NEB.SOLN INH PRN (20:45)
[2021-07-25] MEDS: Heparin 5000 UNITS/ML 1 mL VIAL SUBCUT SCH ×3 (05:02→20:44)
[2021-07-25 06:12] LABS: Hematocrit 27 % (35-47); Hemoglobin 8.5 g/dL (12.0-16.0); Mean Corpuscular HGB Conc 32 g/dL (31-36); Mean Corpuscular Hemoglobin 28 pg (27-31); Mean Corpuscular Volume 86 fL (80-97); Mean Platelet Volume 8.7 fL (7.4-10.4); Platelet Count 145 10^3/uL (150-450); Red Blood Count 3.08 10^6 /uL (3.70-4.87); Red Cell Distribution Width 16 % (10-15); White Blood Count 7.2 10^3/uL (3.5-10.8)
[2021-07-25 06:32] LABS: Calcium 7.3 mg/dL (8.6-10.3); Phosphorus 6.1 mg/dL (2.5-5.0); Potassium 4.2 mmol/L (3.5-5.0)
[2021-07-25] MEDS: Buprenorp/Nalox 8-2 MG SL TAB PO SCH (07:46)
[2021-07-25] MEDS ORDERED: guaiFENesin 100 mg/5 ml LIQ unit dose cup PO PRN (09:14)
[2021-07-25 09:28] LABS: PCO2 Arterial 50 mmHg (35-45); PO2 Arterial 72 mmHg (80-100)
[2021-07-25] MEDS ORDERED: Al Hydrox/Mg Hydrox/Simet LIQ 30 ML UDC PO PRN (09:31)
[2021-07-25] MEDS: Buprenorp/Nalox 2-0.5 mg SL TB SL PRN ×2 (12:46→18:21)
[2021-07-26] MEDS: Heparin 5000 UNITS/ML 1 mL VIAL SUBCUT SCH ×3 (05:18→21:44)
[2021-07-26 06:21] LABS: ABS Eosinophils 0.3 10^3/ul (0-0.6); ABS Lymphocytes 1.1 10^3/ul (1.0-4.8); ABS Monocytes 0.3 10^3/ul (0-0.8); ABS Neutrophils 6.5 10^3/ul (1.5-7.7); Eosinophil % 3.7 %; Hematocrit 27 % (35-47); Hemoglobin 8.4 g/dL (12.0-16.0); Lymphocyte % 13.1 %; Mean Corpuscular HGB Conc 32 g/dL (31-36); Mean Corpuscular Hemoglobin 27 pg (27-31); Mean Corpuscular Volume 85 fL (80-97); Mean Platelet Volume 8.5 fL (7.4-10.4); Nucleated Red Blood Cells % 0.1; Platelet Count 130 10^3/uL (150-450); Red Cell Distribution Width 16 % (10-15); White Blood Count 8.2 10^3/uL (3.5-10.8)
[2021-07-26 06:41] LABS: Albumin 2.9 g/dL (3.2-5.2); Albumin/Globulin Ratio 0.9 (1-3); Calcium 7.3 mg/dL (8.6-10.3); Globulin 3.3 g/dL (2-4); Phosphorus 6.4 mg/dL (2.5-5.0); Potassium 4.5 mmol/L (3.5-5.0); Total Bilirubin 0.2 mg/dL (0.2-1.0); Total Protein 6.2 g/dL (6.4-8.9)
[2021-07-26 09:11] LABS: PCO2 Arterial 57 mmHg (35-45); PO2 Arterial 152 mmHg (80-100)
[2021-07-26] MEDS: Buprenorp/Nalox 8-2 MG SL TAB PO SCH (09:16)
[2021-07-26 13:21] LABS: PCO2 Arterial 55 mmHg (35-45); PO2 Arterial 118 mmHg (80-100)
[2021-07-26 18:49] LABS: PCO2 Arterial 56 mmHg (35-45); PO2 Arterial 107 mmHg (80-100)
[2021-07-26] MEDS: Albuterol/Ipratropium NEB.SOL (2.5/0.5 MG) 3 ML NEB.SOLN INH PRN (19:24)
[2021-07-27 00:26] LABS: PCO2 Arterial 64 mmHg (35-45); PO2 Arterial 100 mmHg (80-100)
[2021-07-27 03:06] LABS: PCO2 Arterial 52 mmHg (35-45); PO2 Arterial 178 mmHg (80-100)
[2021-07-27 05:20] LABS: Calcium 7.2 mg/dL (8.6-10.3); Potassium 4.6 mmol/L (3.5-5.0)
[2021-07-27 05:29] LABS: ABS Eosinophils 0.2 10^3/ul (0-0.6); ABS Lymphocytes 1.2 10^3/ul (1.0-4.8); ABS Monocytes 0.4 10^3/ul (0-0.8); ABS Neutrophils 5.2 10^3/ul (1.5-7.7); Eosinophil % 3.3 %; Hematocrit 27 % (35-47); Hemoglobin 8.3 g/dL (12.0-16.0); Lymphocyte % 16.8 %; Mean Corpuscular HGB Conc 31 g/dL (31-36); Mean Corpuscular Hemoglobin 27 pg (27-31); Mean Corpuscular Volume 87 fL (80-97); Nucleated Red Blood Cells % 0.2; Platelet Count 124 10^3/uL (150-450); Red Blood Count 3.05 10^6 /uL (3.70-4.87); Red Cell Distribution Width 16 % (10-15); White Blood Count 7.1 10^3/uL (3.5-10.8)
[2021-07-27] MEDS: Heparin 5000 UNITS/ML 1 mL VIAL SUBCUT SCH ×3 (06:34→22:23)
[2021-07-27] MEDS: Pantoprazole VIAL 40 MG VIAL IV SCH (08:45)
[2021-07-27 13:44] LABS: Hepatitis B Surface Antigen Nonreactive (Nonreactive)
[2021-07-27 14:02] LABS: Hepatitis B Surface Ab Not Immune (Immune)
[2021-07-27] MEDS: Heparin 1,000 UNIT/ML 10 ml (10,000 UNITS) CATHLAB/DIALYSIS DIALYSIS PRN (15:49)
[2021-07-28] MEDS: Levothyroxine 100 MCG/5 ML VIAL IV SCH (06:14)
[2021-07-28] MEDS: Heparin 5000 UNITS/ML 1 mL VIAL SUBCUT SCH ×3 (06:14→22:10)
[2021-07-28 06:26] LABS: Calcium 6.9 mg/dL (8.6-10.3); Magnesium 1.8 mg/dL (1.9-2.7); Phosphorus 4.6 mg/dL (2.5-5.0); Potassium 3.7 mmol/L (3.5-5.0)
[2021-07-28] MEDS: Heparin 1,000 UNIT/ML 10 ml (10,000 UNITS) CATHLAB/DIALYSIS DIALYSIS PRN (11:10)
[2021-07-28] MEDS: Pantoprazole VIAL 40 MG VIAL IV SCH (11:28)
[2021-07-29 04:30] LABS: Hematocrit 25 % (35-47); Hemoglobin 8.4 g/dL (12.0-16.0); Mean Corpuscular HGB Conc 33 g/dL (31-36); Mean Corpuscular Hemoglobin 28 pg (27-31); Mean Corpuscular Volume 84 fL (80-97); Mean Platelet Volume 8.7 fL (7.4-10.4); Platelet Count 125 10^3/uL (150-450); Red Blood Count 3.04 10^6 /uL (3.70-4.87); Red Cell Distribution Width 15 % (10-15); White Blood Count 6.6 10^3/uL (3.5-10.8)
[2021-07-29 04:45] LABS: Calcium 7.6 mg/dL (8.6-10.3); Magnesium 1.8 mg/dL (1.9-2.7); Phosphorus 3.3 mg/dL (2.5-5.0); Potassium 3.3 mmol/L (3.5-5.0)
[2021-07-29] MEDS: Heparin 5000 UNITS/ML 1 mL VIAL SUBCUT SCH ×3 (06:29→20:55)
[2021-07-29] MEDS: Levothyroxine 100 MCG/5 ML VIAL IV SCH (06:29)
[2021-07-29] MEDS: Pantoprazole VIAL 40 MG VIAL IV SCH (07:49)
[2021-07-30] MEDS: Levothyroxine 100 MCG/5 ML VIAL IV SCH (06:10)
[2021-07-30] MEDS: Heparin 5000 UNITS/ML 1 mL VIAL SUBCUT SCH ×3 (06:11→21:01)
[2021-07-30] MEDS ORDERED: KCL 20 MEQ/100 ML IVPREMIX 20 MEQ/100 ML BAG IV SCH (08:00)
[2021-07-30] MEDS: Pantoprazole VIAL 40 MG VIAL IV SCH (08:23)
[2021-07-30 08:27] LABS: Calcium 8.3 mg/dL (8.6-10.3)
[2021-07-30 08:43] LABS: ABS Basophils 0.1 10^3/ul (0-0.2); ABS Eosinophils 0.2 10^3/ul (0-0.6); ABS Lymphocytes 1.8 10^3/ul (1.0-4.8); ABS Monocytes 0.6 10^3/ul (0-0.8); ABS Neutrophils 5.5 10^3/ul (1.5-7.7); Eosinophil % 2.7 %; Hematocrit 27 % (35-47); Hemoglobin 8.9 g/dL (12.0-16.0); Lymphocyte % 21.8 %; Mean Corpuscular HGB Conc 33 g/dL (31-36); Mean Corpuscular Hemoglobin 27 pg (27-31); Mean Corpuscular Volume 83 fL (80-97); Platelet Count 143 10^3/uL (150-450); Red Blood Count 3.27 10^6 /uL (3.70-4.87); Red Cell Distribution Width 16 % (10-15); White Blood Count 8.2 10^3/uL (3.5-10.8)
[2021-07-30] MEDS ORDERED: Potassium Chlor 20 meq TAB.ER PO ONE (09:05)
[2021-07-31 05:18] LABS: Calcium 8.6 mg/dL (8.6-10.3); Potassium 3.5 mmol/L (3.5-5.0)
[2021-07-31] MEDS: Heparin 5000 UNITS/ML 1 mL VIAL SUBCUT SCH ×3 (05:48→21:23)
[2021-07-31] MEDS: Levothyroxine 100 MCG/5 ML VIAL IV SCH (05:49)
[2021-07-31] MEDS: Pantoprazole VIAL 40 MG VIAL IV SCH (09:18)
[2021-07-31] MEDS ORDERED: LORazepam 2 mg VIAL 1 ml IV PUSH ONE (10:26)
[2021-07-31] MEDS ORDERED: Lorazepam PYXIS KEY PRN (10:26)
[2021-07-31 12:50] LABS: Venous Bicarbonate HCO3 24.2 mmol/L (24-28)
[2021-08-01 05:44] LABS: Hematocrit 27 % (35-47); Hemoglobin 8.7 g/dL (12.0-16.0); Mean Corpuscular HGB Conc 33 g/dL (31-36); Mean Corpuscular Hemoglobin 28 pg (27-31); Mean Corpuscular Volume 84 fL (80-97); Mean Platelet Volume 8.9 fL (7.4-10.4); Platelet Count 132 10^3/uL (150-450); Red Blood Count 3.14 10^6 /uL (3.70-4.87); Red Cell Distribution Width 16 % (10-15); White Blood Count 8.6 10^3/uL (3.5-10.8)
[2021-08-01 06:02] LABS: Calcium 8.2 mg/dL (8.6-10.3); Magnesium 1.9 mg/dL (1.9-2.7); Phosphorus 2.5 mg/dL (2.5-5.0); Potassium 3.8 mmol/L (3.5-5.0)
[2021-08-01] MEDS ORDERED: Magnesium Sulfate IV 1GM/100ML 1 GM/100 ML BAG IV ONE (06:29)
[2021-08-01] MEDS: Heparin 5000 UNITS/ML 1 mL VIAL SUBCUT SCH ×3 (06:41→21:00)
[2021-08-01] MEDS: Heparin 1,000 UNIT/ML 10 ml (10,000 UNITS) CATHLAB/DIALYSIS DIALYSIS PRN (13:39)
[2021-08-01 22:07] LABS: Potassium 2.8 mmol/L (3.5-5.0)
[2021-08-01] MEDS ORDERED: Calcium Gluconate 2 GM in NS 0.9% 100 ml BAG 100 ML IV ONE (23:00)
[2021-08-02] MEDS: Heparin 5000 UNITS/ML 1 mL VIAL SUBCUT SCH ×3 (05:07→21:18)
[2021-08-02 05:30] LABS: Hematocrit 27 % (35-47); Hemoglobin 8.7 g/dL (12.0-16.0); Mean Corpuscular HGB Conc 32 g/dL (31-36); Mean Corpuscular Hemoglobin 27 pg (27-31); Mean Corpuscular Volume 85 fL (80-97); Mean Platelet Volume 8.7 fL (7.4-10.4); Platelet Count 130 10^3/uL (150-450); Red Cell Distribution Width 17 % (10-15); White Blood Count 7.9 10^3/uL (3.5-10.8)
[2021-08-02 05:51] LABS: Magnesium 2.1 mg/dL (1.9-2.7); Phosphorus 2.8 mg/dL (2.5-5.0)
[2021-08-02] MEDS ORDERED: Potassium Chlor 20 meq TAB.ER PO ONE (07:04)
[2021-08-02 07:22] LABS: Calcium 8.4 mg/dL (8.6-10.3)
[2021-08-02] MEDS ORDERED: Dextran 70/Hypromellose Tears Eye Drops 15 ml BTL (for Artificials Tears) BOTH EYES PRN (16:31)
[2021-08-03] MEDS: Heparin 5000 UNITS/ML 1 mL VIAL SUBCUT SCH ×3 (05:05→20:50)
[2021-08-03] MEDS ORDERED: Heparin 1,000 UNIT/ML 10 ml (10,000 UNITS) CATHLAB/DIALYSIS DIALYSIS ONE (11:54)
[2021-08-03] MEDS: Heparin 1,000 UNIT/ML 10 ml (10,000 UNITS) CATHLAB/DIALYSIS DIALYSIS PRN (12:05)
[2021-08-03] MEDS: Insulin GLARGINE 100 un/ml 10 ml VIAL SUBCUT SCH ×2 (13:23→19:24)
[2021-08-03 19:02] LABS: Anion Gap 7 mmol/L (2-11); Blood Urea Nitrogen 17 mg/dL (6-24); CO2 Carbon Dioxide 24 mmol/L (22-32); Calcium 8.1 mg/dL (8.6-10.3); Chloride 100 mmol/L (101-111); Glucose 447 mg/dL (70-100); Glucose Confirmatory 447 mg/dL (70-100); Magnesium 1.8 mg/dL (1.9-2.7); Potassium 4.1 mmol/L (3.5-5.0); Sodium 131 mmol/L (135-145)
[2021-08-04] MEDS: Heparin 5000 UNITS/ML 1 mL VIAL SUBCUT SCH ×3 (05:48→21:07)
[2021-08-04 06:14] LABS: Hematocrit 28 % (35-47); Mean Corpuscular HGB Conc 32 g/dL (31-36); Mean Corpuscular Hemoglobin 27 pg (27-31); Mean Corpuscular Volume 85 fL (80-97); Mean Platelet Volume 9.1 fL (7.4-10.4); Platelet Count 143 10^3/uL (150-450); Red Cell Distribution Width 17 % (10-15); White Blood Count 6.8 10^3/uL (3.5-10.8)
[2021-08-04 06:37] LABS: Calcium 8.2 mg/dL (8.6-10.3); Magnesium 1.9 mg/dL (1.9-2.7)
[2021-08-04] MEDS ORDERED: Dextrose 50% Syringe 50 ml 25 GM/50 ML SYRINGE IV PUSH PRN (10:07)
[2021-08-04] MEDS: Heparin 1,000 UNIT/ML 10 ml (10,000 UNITS) CATHLAB/DIALYSIS DIALYSIS ONE ×2 (11:52→16:32)
[2021-08-04] MEDS: Insulin GLARGINE 100 un/ml 10 ml VIAL SUBCUT SCH (12:31)
[2021-08-04] MEDS ORDERED: Magnesium Sulfate IV 1GM/100ML 1 GM/100 ML BAG IV ONE (17:17)
[2021-08-04] MEDS: guaiFENesin 100 mg/5 ml LIQ unit dose cup PO PRN (21:22)
[2021-08-05] MEDS: Heparin 5000 UNITS/ML 1 mL VIAL SUBCUT SCH ×3 (05:40→21:04)
[2021-08-05] MEDS: Insulin GLARGINE 100 un/ml 10 ml VIAL SUBCUT SCH (10:35)
[2021-08-06] MEDS: Heparin 5000 UNITS/ML 1 mL VIAL SUBCUT SCH ×3 (05:06→20:45)
[2021-08-06 06:12] LABS: ABS Basophils 0.1 10^3/ul (0-0.2); ABS Eosinophils 0.4 10^3/ul (0-0.6); ABS Lymphocytes 2.1 10^3/ul (1.0-4.8); ABS Monocytes 0.7 10^3/ul (0-0.8); ABS Neutrophils 3.9 10^3/ul (1.5-7.7); Eosinophil % 5.8 %; Hematocrit 28 % (35-47); Lymphocyte % 29.5 %; Mean Corpuscular HGB Conc 32 g/dL (31-36); Mean Corpuscular Hemoglobin 27 pg (27-31); Mean Corpuscular Volume 86 fL (80-97); Mean Platelet Volume 8.9 fL (7.4-10.4); Nucleated Red Blood Cells % 0.2; Platelet Count 163 10^3/uL (150-450); Red Blood Count 3.28 10^6 /uL (3.70-4.87); Red Cell Distribution Width 17 % (10-15); White Blood Count 7.2 10^3/uL (3.5-10.8)
[2021-08-06 06:26] LABS: Magnesium 2.1 mg/dL (1.9-2.7)
[2021-08-06 06:34] LABS: Calcium 7.7 mg/dL (8.6-10.3); Potassium 3.9 mmol/L (3.5-5.0)
[2021-08-06] MEDS: Insulin GLARGINE 100 un/ml 10 ml VIAL SUBCUT SCH (09:48)
[2021-08-06 11:09] LABS: Phosphorus 1.9 mg/dL (2.5-5.0)
[2021-08-06] MEDS: guaiFENesin 100 mg/5 ml LIQ unit dose cup PO PRN (18:31)
[2021-08-07] MEDS: Heparin 5000 UNITS/ML 1 mL VIAL SUBCUT SCH ×3 (04:15→21:45)
[2021-08-07 06:18] LABS: ABS Basophils 0.1 10^3/ul (0-0.2); ABS Eosinophils 0.4 10^3/ul (0-0.6); ABS Lymphocytes 1.7 10^3/ul (1.0-4.8); ABS Monocytes 0.6 10^3/ul (0-0.8); Eosinophil % 5.7 %; Hematocrit 28 % (35-47); Lymphocyte % 25.5 %; Mean Corpuscular HGB Conc 32 g/dL (31-36); Mean Corpuscular Hemoglobin 28 pg (27-31); Mean Corpuscular Volume 86 fL (80-97); Mean Platelet Volume 8.4 fL (7.4-10.4); Platelet Count 159 10^3/uL (150-450); Red Blood Count 3.23 10^6 /uL (3.70-4.87); Red Cell Distribution Width 17 % (10-15); White Blood Count 6.8 10^3/uL (3.5-10.8)
[2021-08-07 06:55] LABS: Albumin 3.1 g/dL (3.2-5.2); Calcium 7.9 mg/dL (8.6-10.3); Globulin 3.2 g/dL (2-4); Potassium 4.1 mmol/L (3.5-5.0); Total Bilirubin 0.2 mg/dL (0.2-1.0); Total Protein 6.3 g/dL (6.4-8.9)
[2021-08-07] MEDS ORDERED: Heparin *DIALYSIS* ONLY 1,000 UNITS/ML VIAL DIALYSIS ONE (07:57)
[2021-08-07] MEDS ORDERED: Heparin 1,000 UNIT/ML 10 ml (10,000 UNITS) CATHLAB/DIALYSIS DIALYSIS SCH (09:00)
[2021-08-07] MEDS ORDERED: Midazolam 5 mg/5 ml VIAL 1 mg/ml 5 ml VIAL (5 mg) ONE (11:35)
[2021-08-07] MEDS ORDERED: fentaNYL 100 mcg/2 ml 50 MCG/ML VIAL ONE (11:35)
[2021-08-07] MEDS ORDERED: Lidocaine 1% VIAL 10 MG/ML VIAL ONE (12:23)
[2021-08-07] MEDS ORDERED: Heparin 2 UNITS/ML IVPREMIX 1,000 UNIT/500 ML BAG IV ONE (12:24)
[2021-08-07] MEDS ORDERED: Clindamycin 600 MG/D5W BAG IV ONE (12:31)
[2021-08-07] MEDS ORDERED: Heparin 5000 UNITS/ML 1 mL VIAL ONE (12:40)
[2021-08-07] MEDS: Insulin GLARGINE 100 un/ml 10 ml VIAL SUBCUT SCH (16:17)
[2021-08-08] MEDS: guaiFENesin 100 mg/5 ml LIQ unit dose cup PO PRN ×2 (04:13→20:16)
[2021-08-08] MEDS: Heparin 5000 UNITS/ML 1 mL VIAL SUBCUT SCH ×3 (05:23→20:18)
[2021-08-08 07:19] LABS: Calcium 7.7 mg/dL (8.6-10.3); Magnesium 2.1 mg/dL (1.9-2.7); Potassium 4.2 mmol/L (3.5-5.0)
[2021-08-08] MEDS: Insulin GLARGINE 100 un/ml 10 ml VIAL SUBCUT SCH (08:50)
[2021-08-08 09:06] LABS: Hematocrit 30 % (35-47); Hemoglobin 9.5 g/dL (12.0-16.0); Mean Corpuscular HGB Conc 32 g/dL (31-36); Mean Corpuscular Hemoglobin 28 pg (27-31); Mean Corpuscular Volume 88 fL (80-97); Red Blood Count 3.38 10^6 /uL (3.70-4.87); Red Cell Distribution Width 17 % (10-15)
[2021-08-08 09:07] LABS: ABS Basophils 0.1 10^3/ul (0-0.2); ABS Eosinophils 0.6 10^3/ul (0-0.6); ABS Lymphocytes 2.6 10^3/ul (1.0-4.8); ABS Monocytes 0.8 10^3/ul (0-0.8); ABS Neutrophils 6.1 10^3/ul (1.5-7.7); Lymphocyte % 25.4 %; Mean Platelet Volume 9.3 fL (7.4-10.4); Nucleated Red Blood Cells % 0.2; Platelet Count 178 10^3/uL (150-450); White Blood Count 10.1 10^3/uL (3.5-10.8)
[2021-08-08] MEDS: Heparin 1,000 UNIT/ML 10 ml (10,000 UNITS) CATHLAB/DIALYSIS DIALYSIS SCH ×4 (14:24→18:31)
[2021-08-09] MEDS: Heparin 5000 UNITS/ML 1 mL VIAL SUBCUT SCH ×3 (04:45→21:34)
[2021-08-09 06:01] LABS: Calcium 8.1 mg/dL (8.6-10.3); Magnesium 1.9 mg/dL (1.9-2.7); Potassium 3.8 mmol/L (3.5-5.0)
[2021-08-09] MEDS ORDERED: Potassium Chlor 20 meq TAB.ER PO ONE (07:33)
[2021-08-09] MEDS ORDERED: Magnesium Sulfate IV 1GM/100ML 1 GM/100 ML BAG IV ONE (07:34)
[2021-08-09] MEDS: Insulin GLARGINE 100 un/ml 10 ml VIAL SUBCUT SCH (08:38)
[2021-08-09] MEDS: Heparin 1,000 UNIT/ML 10 ml (10,000 UNITS) CATHLAB/DIALYSIS DIALYSIS SCH (10:27)
[2021-08-09 15:47] LABS: Urine Appearance Turbid; Urine Bilirubin Negative (Negative); Urine Blood 1+ (Negative); Urine Color Yellow; Urine Glucose 2+(150 mg/dL) (Negative); Urine Ketones Negative (Negative); Urine Nitrite Negative (Negative); Urine Protein 3+(>=500 mg/dL) (Negative); Urine Urobilinogen Negative (Negative)
[2021-08-09 15:50] LABS: Urine Bacteria 2+ (Absent); Urine Red Blood Cell 3+(>10/hpf) (Absent); Urine Squamous Epithelial Cell Present (Absent); Urine White Blood Cell 3+(>20/hpf) (Absent)
[2021-08-09] MEDS ORDERED: cefTRIAXone 1 gm/50 mL NS BAG 1 GM/50 ML BAG IVPB SCH (18:00)
[2021-08-09] MEDS ORDERED: diPHENhydraMINE 25 mg TAB PO ONE (19:49)
[2021-08-10] MEDS: Heparin 5000 UNITS/ML 1 mL VIAL SUBCUT SCH ×2 (05:35→16:55)
[2021-08-10] MEDS ORDERED: diPHENhydraMINE 25 mg TAB PO ONE (07:26)
[2021-08-10] MEDS: Insulin GLARGINE 100 un/ml 10 ml VIAL SUBCUT SCH (09:16)
[2021-08-10] MEDS ORDERED: Heparin *DIALYSIS* ONLY 1,000 UNITS/ML VIAL DIALYSIS ONE (13:39)
[2021-08-10] MEDS ORDERED: Heparin VIAL 10,000 UNITS/ML VIAL (TEN THOUSAND) IV ONE (14:30)
[2021-08-10 15:16] LABS: Rapid COVID-19 Molecular Undetected (Undetected)
[2021-08-10 20:09] VITALS: BP 120/71
[2021-08-11] MEDS ORDERED: Insulin GLARGINE 100 un/ml 10 ml VIAL SUBCUT SCH (09:00)
== END 2021-08-10 21:20 | DRG 871 ==
LOC: ED 17:26 → MED 22:54 → SUATTDRO 22:54 → MED 07-19 02:56 → ICU 07-26 09:59 → MEDTELE 07-31 18:18
PROVIDERS: ADMIT Internal Medicine; ATTEND Internal Medicine

== ENCOUNTER 2022-08-15 13:42 | Inpatient (IN) ==
[2022-08-15 16:17] LABS: ABS Eosinophils 0.2 10^3/ul (0-0.6); ABS Lymphocytes 1.1 10^3/ul (1.0-4.8); ABS Monocytes 0.6 10^3/ul (0-0.8); ABS Neutrophils 5.4 10^3/ul (1.5-7.7); Eosinophil % 2.7 %; Hematocrit 31 % (35-47); Hemoglobin 9.6 g/dL (12.0-16.0); Lymphocyte % 15.1 %; Mean Corpuscular HGB Conc 31 g/dL (31-36); Mean Corpuscular Hemoglobin 26 pg (27-31); Mean Corpuscular Volume 85 fL (80-97); Red Blood Count 3.69 10^6 /uL (3.70-4.87); Red Cell Distribution Width 14 % (10-15); White Blood Count 7.3 10^3/uL (3.5-10.8)
[2022-08-15 17:07] LABS: Albumin 3.3 g/dL (3.2-5.2); Albumin/Globulin Ratio 0.9 (1-3); Globulin 3.5 g/dL (2-4); Potassium 4.4 mmol/L (3.5-5.0); Total Bilirubin 0.3 mg/dL (0.2-1.0); Total Protein 6.8 g/dL (6.4-8.9); eGFR CKD-EPI 6.4 (>60)
[2022-08-15 17:18] LABS: Calcium 6.1 mg/dL (8.6-10.3)
[2022-08-15] MEDS ORDERED: Calcium Gluconate 2 GM in NS 0.9% 100 ml BAG 100 ML IVPB ONE ×2 (17:49→20:12)
[2022-08-15 18:09] LABS: Mean Platelet Volume 9.7 fL (7.4-10.4); Platelet Count 86 10^3/uL (150-450)
[2022-08-15 18:45] LABS: Phosphorus 5.6 mg/dL (2.5-5.0)
[2022-08-15] MEDS ORDERED: Dextran 70/Hypromellose Tears Eye Drops 15 ml BTL (for Artificials Tears) BOTH EYES PRN (19:27)
[2022-08-15 19:49] LABS: Urine Appearance Cloudy; Urine Bilirubin Negative (Negative); Urine Blood 1+ (Negative); Urine Color Yellow; Urine Glucose Negative (Negative); Urine Ketones Negative (Negative); Urine Nitrite Negative (Negative); Urine Protein 3+(>=500 mg/dL) (Negative); Urine Specific Gravity 1.012 (1.002-1.030); Urine Urobilinogen Negative (Negative)
[2022-08-15] MEDS ORDERED: Dextrose 50% Syringe 50 ml 25 GM/50 ML SYRINGE IV PUSH PRN (20:13)
[2022-08-15 20:33] LABS: Urine Bacteria 1+ (Absent); Urine Red Blood Cell 1+(3-5/hpf) (Absent); Urine Squamous Epithelial Cell Present (Absent); Urine White Blood Cell Trace(0-5/hpf) (Absent)
[2022-08-15] MEDS ORDERED: Fluticasone HFA 110 mcg(NF) MDI INH SCH (21:00)
[2022-08-15] MEDS ORDERED: Morphine 2 MG/ML SYRINGE IV PRN (21:01)
[2022-08-15] MEDS: Heparin 5000 UNITS/ML 1 mL VIAL SUBCUT SCH (22:46)
[2022-08-16 07:56] LABS: ABS Eosinophils 0.2 10^3/ul (0-0.6); ABS Lymphocytes 1.1 10^3/ul (1.0-4.8); ABS Monocytes 0.6 10^3/ul (0-0.8); Eosinophil % 4.5 %; Hematocrit 27 % (35-47); Hemoglobin 8.5 g/dL (12.0-16.0); Lymphocyte % 22.1 %; Mean Corpuscular HGB Conc 31 g/dL (31-36); Mean Corpuscular Hemoglobin 26 pg (27-31); Mean Corpuscular Volume 84 fL (80-97); Mean Platelet Volume 9.9 fL (7.4-10.4); Platelet Count 82 10^3/uL (150-450); Red Blood Count 3.21 10^6 /uL (3.70-4.87); Red Cell Distribution Width 14 % (10-15); White Blood Count 4.9 10^3/uL (3.5-10.8)
[2022-08-16 09:12] LABS: Potassium 4.4 mmol/L (3.5-5.0); eGFR CKD-EPI 7.1 (>60)
[2022-08-16 09:50] LABS: Calcium 6.1 mg/dL (8.6-10.3)
[2022-08-16] MEDS: Heparin 5000 UNITS/ML 1 mL VIAL SUBCUT SCH ×2 (09:50→21:49)
[2022-08-16] MEDS: Heparin 1,000 UNIT/ML 10 ml (10,000 UNITS) CATHLAB/DIALYSIS DIALYSIS ONE ×5 (11:15→15:17)
[2022-08-16 13:35] LABS: Hepatitis B Surface Antigen Nonreactive (Nonreactive)
[2022-08-16 13:52] LABS: Hepatitis B Surface Ab Not Immune (Immune)
[2022-08-16] MEDS: Insulin GLARGINE 100 un/ml 10 ml VIAL SUBCUT SCH (14:45)
[2022-08-16] MEDS: Mometasone 220 MCG MDI INH SCH (14:45)
[2022-08-16 17:23] LABS: TSH Ultra Thyroid Stim Horm 13.97 mcIU/mL (0.34-5.60)
[2022-08-16 17:25] LABS: Carcinoembryonic Antigen 1.5 ng/mL (0.1-5.0)
[2022-08-16] MEDS: Acetaminophen IV 1 GM/100ML 1,000 MG/100 ML BAG IV PRN (17:31)
[2022-08-16 17:34] LABS: Folate 18.98 ng/mL (5.90-24.80)
[2022-08-17 05:33] LABS: ABS Eosinophils 0.1 10^3/ul (0-0.6); ABS Lymphocytes 0.8 10^3/ul (1.0-4.8); ABS Monocytes 0.4 10^3/ul (0-0.8); Eosinophil % 3.3 %; Hematocrit 27 % (35-47); Hemoglobin 8.3 g/dL (12.0-16.0); Lymphocyte % 19.3 %; Mean Corpuscular HGB Conc 31 g/dL (31-36); Mean Corpuscular Hemoglobin 26 pg (27-31); Mean Corpuscular Volume 83 fL (80-97); Mean Platelet Volume 9.6 fL (7.4-10.4); Platelet Count 89 10^3/uL (150-450); Red Blood Count 3.22 10^6 /uL (3.70-4.87); Red Cell Distribution Width 14 % (10-15); White Blood Count 4.4 10^3/uL (3.5-10.8)
[2022-08-17 06:06] LABS: Calcium 7.1 mg/dL (8.6-10.3); Potassium 4.2 mmol/L (3.5-5.0); eGFR CKD-EPI 14.2 (>60)
[2022-08-17 06:47] LABS: Magnesium 1.8 mg/dL (1.9-2.7)
[2022-08-17] MEDS ORDERED: Magnesium Sulfate 2 gm BAG 2 GM/50 ML BAG IVPB ONE (07:50)
[2022-08-17] MEDS: Heparin 1,000 UNIT/ML 10 ml (10,000 UNITS) CATHLAB/DIALYSIS DIALYSIS PRN ×5 (08:18→12:18)
[2022-08-17] MEDS: Mometasone 220 MCG MDI INH SCH (08:50)
[2022-08-17] MEDS: Heparin 5000 UNITS/ML 1 mL VIAL SUBCUT SCH ×2 (09:00→20:14)
[2022-08-17 09:28] LABS: Phosphorus 4.2 mg/dL (2.5-5.0)
[2022-08-17] MEDS: Acetaminophen IV 1 GM/100ML 1,000 MG/100 ML BAG IV PRN ×2 (13:14→21:51)
[2022-08-17] MEDS: Insulin GLARGINE 100 un/ml 10 ml VIAL SUBCUT SCH (13:17)
[2022-08-17] MEDS: Olopatadine 0.1% OPHTH (NF) 1 DROP BTL BOTH EYES PRN (21:54)
[2022-08-18 05:42] LABS: ABS Eosinophils 0.2 10^3/ul (0-0.6); ABS Lymphocytes 0.9 10^3/ul (1.0-4.8); ABS Monocytes 0.4 10^3/ul (0-0.8); ABS Neutrophils 1.9 10^3/ul (1.5-7.7); Eosinophil % 4.6 %; Hematocrit 27 % (35-47); Hemoglobin 8.6 g/dL (12.0-16.0); Lymphocyte % 27.3 %; Mean Corpuscular HGB Conc 32 g/dL (31-36); Mean Corpuscular Hemoglobin 26 pg (27-31); Mean Corpuscular Volume 83 fL (80-97); Mean Platelet Volume 9.8 fL (7.4-10.4); Platelet Count 104 10^3/uL (150-450); Red Blood Count 3.26 10^6 /uL (3.70-4.87); Red Cell Distribution Width 14 % (10-15); White Blood Count 3.4 10^3/uL (3.5-10.8)
[2022-08-18 06:26] LABS: Calcium 7.8 mg/dL (8.6-10.3); Potassium 3.9 mmol/L (3.5-5.0)
[2022-08-18] MEDS: Insulin GLARGINE 100 un/ml 10 ml VIAL SUBCUT SCH (08:45)
[2022-08-18] MEDS: Heparin 5000 UNITS/ML 1 mL VIAL SUBCUT SCH ×2 (08:46→21:57)
[2022-08-18] MEDS: Acetaminophen IV 1 GM/100ML 1,000 MG/100 ML BAG IV PRN ×2 (09:28→17:10)
[2022-08-18] MEDS: Mometasone 220 MCG MDI INH SCH (12:51)
[2022-08-19] MEDS: Heparin 5000 UNITS/ML 1 mL VIAL SUBCUT SCH ×2 (08:08→20:50)
[2022-08-19] MEDS: Insulin GLARGINE 100 un/ml 10 ml VIAL SUBCUT SCH (08:13)
[2022-08-19] MEDS: Acetaminophen IV 1 GM/100ML 1,000 MG/100 ML BAG IV PRN ×2 (08:15→18:09)
[2022-08-19 08:41] LABS: ABS Eosinophils 0.2 10^3/ul (0-0.6); ABS Lymphocytes 0.9 10^3/ul (1.0-4.8); ABS Monocytes 0.4 10^3/ul (0-0.8); ABS Neutrophils 2.4 10^3/ul (1.5-7.7); Eosinophil % 5.2 %; Hematocrit 29 % (35-47); Hemoglobin 9.1 g/dL (12.0-16.0); Lymphocyte % 22.8 %; Mean Corpuscular HGB Conc 32 g/dL (31-36); Mean Corpuscular Hemoglobin 26 pg (27-31); Mean Corpuscular Volume 83 fL (80-97); Mean Platelet Volume 10.2 fL (7.4-10.4); Platelet Count 118 10^3/uL (150-450); Red Blood Count 3.46 10^6 /uL (3.70-4.87); Red Cell Distribution Width 14 % (10-15)
[2022-08-19 08:56] LABS: Calcium 7.9 mg/dL (8.6-10.3)
[2022-08-19] MEDS: Mometasone 220 MCG MDI INH SCH (10:15)
[2022-08-19] MEDS ORDERED: PEG 3000 GI LAVAGE 1 GALLON PO ONE (16:00)
[2022-08-20] MEDS: Acetaminophen IV 1 GM/100ML 1,000 MG/100 ML BAG IV PRN ×3 (05:34→22:22)
[2022-08-20 06:20] LABS: ABS Eosinophils 0.2 10^3/ul (0-0.6); ABS Lymphocytes 1.2 10^3/ul (1.0-4.8); ABS Monocytes 0.4 10^3/ul (0-0.8); ABS Neutrophils 1.9 10^3/ul (1.5-7.7); Eosinophil % 5.7 %; Hematocrit 30 % (35-47); Hemoglobin 9.3 g/dL (12.0-16.0); Lymphocyte % 31.2 %; Mean Corpuscular HGB Conc 31 g/dL (31-36); Mean Corpuscular Hemoglobin 27 pg (27-31); Mean Corpuscular Volume 84 fL (80-97); Mean Platelet Volume 9.9 fL (7.4-10.4); Platelet Count 133 10^3/uL (150-450); Red Blood Count 3.51 10^6 /uL (3.70-4.87); Red Cell Distribution Width 14 % (10-15); White Blood Count 3.8 10^3/uL (3.5-10.8)
[2022-08-20 06:37] LABS: Calcium 7.7 mg/dL (8.6-10.3); Magnesium 1.7 mg/dL (1.9-2.7); Potassium 4.2 mmol/L (3.5-5.0); eGFR CKD-EPI 14.1 (>60)
[2022-08-20] MEDS ORDERED: Magnesium Sulfate IV 1GM/100ML 1 GM/100 ML BAG IV ONE (07:06)
[2022-08-20] MEDS: Mometasone 220 MCG MDI INH SCH (08:30)
[2022-08-20] MEDS: Heparin 5000 UNITS/ML 1 mL VIAL SUBCUT SCH ×2 (09:47→21:19)
[2022-08-20] MEDS: Insulin GLARGINE 100 un/ml 10 ml VIAL SUBCUT SCH (09:47)
[2022-08-20] MEDS ORDERED: Lidocaine PATCH 5% PATCH TRANSDERM ONE (11:15)
[2022-08-20] MEDS ORDERED: Midazolam 5 mg/5 ml VIAL 1 mg/ml 5 ml VIAL (5 mg) ONE (14:52)
[2022-08-20] MEDS ORDERED: fentaNYL 100 mcg/2 ml 50 MCG/ML VIAL ONE (14:52)
[2022-08-20] MEDS ORDERED: PEG 3000 GI LAVAGE 1 GALLON PO ONE (15:56)
[2022-08-21 06:24] LABS: ABS Eosinophils 0.2 10^3/ul (0-0.6); ABS Lymphocytes 1.1 10^3/ul (1.0-4.8); ABS Monocytes 0.4 10^3/ul (0-0.8); ABS Neutrophils 1.9 10^3/ul (1.5-7.7); Eosinophil % 5.4 %; Hematocrit 29 % (35-47); Lymphocyte % 30.8 %; Mean Corpuscular HGB Conc 31 g/dL (31-36); Mean Corpuscular Hemoglobin 26 pg (27-31); Mean Corpuscular Volume 85 fL (80-97); Mean Platelet Volume 9.9 fL (7.4-10.4); Nucleated Red Blood Cells % 0.1; Platelet Count 137 10^3/uL (150-450); Red Blood Count 3.43 10^6 /uL (3.70-4.87); Red Cell Distribution Width 14 % (10-15); White Blood Count 3.7 10^3/uL (3.5-10.8)
[2022-08-21] MEDS: Acetaminophen IV 1 GM/100ML 1,000 MG/100 ML BAG IV PRN ×2 (06:25→17:31)
[2022-08-21 06:57] LABS: Calcium 7.2 mg/dL (8.6-10.3); Potassium 4.6 mmol/L (3.5-5.0); eGFR CKD-EPI 13.8 (>60)
[2022-08-21] MEDS: Heparin 1,000 UNIT/ML 10 ml (10,000 UNITS) CATHLAB/DIALYSIS DIALYSIS PRN ×4 (07:14→10:42)
[2022-08-21] MEDS: Mometasone 220 MCG MDI INH SCH (07:22)
[2022-08-21] MEDS: Heparin 5000 UNITS/ML 1 mL VIAL SUBCUT SCH ×2 (11:01→20:01)
[2022-08-21] MEDS: Insulin GLARGINE 100 un/ml 10 ml VIAL SUBCUT SCH (11:02)
[2022-08-21] MEDS ORDERED: Midazolam 5 mg/5 ml VIAL 1 mg/ml 5 ml VIAL (5 mg) ONE (15:31)
[2022-08-21] MEDS ORDERED: fentaNYL 100 mcg/2 ml 50 MCG/ML VIAL ONE (15:31)
[2022-08-21] MEDS ORDERED: Ondansetron ODT 4 mg TAB 4 MG TAB SL ONE (23:29)
[2022-08-22] MEDS: Mometasone 220 MCG MDI INH SCH (07:40)
[2022-08-22] MEDS: Heparin 1,000 UNIT/ML 10 ml (10,000 UNITS) CATHLAB/DIALYSIS DIALYSIS PRN ×4 (09:26→12:27)
[2022-08-22 09:38] LABS: ABS Eosinophils 0.2 10^3/ul (0-0.6); ABS Lymphocytes 1.1 10^3/ul (1.0-4.8); ABS Monocytes 0.3 10^3/ul (0-0.8); ABS Neutrophils 2.4 10^3/ul (1.5-7.7); Hematocrit 29 % (35-47); Hemoglobin 8.7 g/dL (12.0-16.0); Lymphocyte % 26.9 %; Mean Corpuscular HGB Conc 30 g/dL (31-36); Mean Corpuscular Hemoglobin 26 pg (27-31); Mean Corpuscular Volume 85 fL (80-97); Mean Platelet Volume 9.6 fL (7.4-10.4); Platelet Count 140 10^3/uL (150-450); Red Blood Count 3.39 10^6 /uL (3.70-4.87); Red Cell Distribution Width 14 % (10-15); White Blood Count 3.9 10^3/uL (3.5-10.8)
[2022-08-22] MEDS: Acetaminophen IV 1 GM/100ML 1,000 MG/100 ML BAG IV PRN ×2 (09:43→18:22)
[2022-08-22 10:20] LABS: Calcium 7.1 mg/dL (8.6-10.3); Potassium 4.4 mmol/L (3.5-5.0); eGFR CKD-EPI 16.7 (>60)
[2022-08-22] MEDS: Insulin GLARGINE 100 un/ml 10 ml VIAL SUBCUT SCH (14:22)
[2022-08-22] MEDS ORDERED: Iodixanol (CONTRAST) 320 MG/ML 100 ML SDV IV ONE (15:03)
[2022-08-22] MEDS: Heparin 5000 UNITS/ML 1 mL VIAL SUBCUT SCH ×2 (15:17→20:00)
[2022-08-22] MEDS: cefTRIAXone 1 gm/50 mL D5W 1 GM/50 ML BAG IV SCH (17:22)
[2022-08-22] MEDS: Olopatadine 0.1% OPHTH (NF) 1 DROP BTL BOTH EYES PRN (20:00)
[2022-08-23 06:41] LABS: ABS Eosinophils 0.2 10^3/ul (0-0.6); ABS Lymphocytes 1.3 10^3/ul (1.0-4.8); ABS Monocytes 0.4 10^3/ul (0-0.8); ABS Neutrophils 2.1 10^3/ul (1.5-7.7); Eosinophil % 4.7 %; Hematocrit 28 % (35-47); Lymphocyte % 31.7 %; Mean Corpuscular HGB Conc 32 g/dL (31-36); Mean Corpuscular Hemoglobin 27 pg (27-31); Mean Corpuscular Volume 84 fL (80-97); Mean Platelet Volume 9.6 fL (7.4-10.4); Nucleated Red Blood Cells % 0.1; Platelet Count 150 10^3/uL (150-450); Red Blood Count 3.38 10^6 /uL (3.70-4.87); Red Cell Distribution Width 14 % (10-15); White Blood Count 3.9 10^3/uL (3.5-10.8)
[2022-08-23 07:04] LABS: Calcium 7.3 mg/dL (8.6-10.3); Potassium 4.6 mmol/L (3.5-5.0); eGFR CKD-EPI 19.7 (>60)
[2022-08-23] MEDS: Mometasone 220 MCG MDI INH SCH (07:35)
[2022-08-23] MEDS: Acetaminophen IV 1 GM/100ML 1,000 MG/100 ML BAG IV PRN (07:43)
[2022-08-23] MEDS: Heparin 5000 UNITS/ML 1 mL VIAL SUBCUT SCH ×2 (09:02→20:03)
[2022-08-23] MEDS: Insulin GLARGINE 100 un/ml 10 ml VIAL SUBCUT SCH ×2 (09:13→09:45)
[2022-08-23] MEDS: Olopatadine 0.1% OPHTH (NF) 1 DROP BTL BOTH EYES PRN (15:33)
[2022-08-23] MEDS: cefTRIAXone 1 gm/50 mL D5W 1 GM/50 ML BAG IV SCH (15:33)
[2022-08-23] MEDS ORDERED: Ondansetron ODT 4 mg TAB 4 MG TAB SL PRN (20:16)
[2022-08-24 07:03] LABS: Calcium 6.9 mg/dL (8.6-10.3); Potassium 4.6 mmol/L (3.5-5.0); eGFR CKD-EPI 14.4 (>60)
[2022-08-24] MEDS: Insulin GLARGINE 100 un/ml 10 ml VIAL SUBCUT SCH (07:51)
[2022-08-24] MEDS: Heparin 5000 UNITS/ML 1 mL VIAL SUBCUT SCH (08:00)
[2022-08-24 09:03] LABS: ABS Eosinophils 0.2 10^3/ul (0-0.6); ABS Lymphocytes 1.4 10^3/ul (1.0-4.8); ABS Monocytes 0.5 10^3/ul (0-0.8); ABS Neutrophils 2.5 10^3/ul (1.5-7.7); Eosinophil % 4.8 %; Hematocrit 29 % (35-47); Hemoglobin 8.9 g/dL (12.0-16.0); Lymphocyte % 30.5 %; Mean Corpuscular HGB Conc 31 g/dL (31-36); Mean Corpuscular Hemoglobin 26 pg (27-31); Mean Corpuscular Volume 85 fL (80-97); Mean Platelet Volume 10.1 fL (7.4-10.4); Nucleated Red Blood Cells % 0.3; Platelet Count 154 10^3/uL (150-450); Red Blood Count 3.41 10^6 /uL (3.70-4.87); Red Cell Distribution Width 14 % (10-15); White Blood Count 4.6 10^3/uL (3.5-10.8)
[2022-08-24] MEDS: Mometasone 220 MCG MDI INH SCH (09:07)
[2022-08-24] MEDS: Heparin 1,000 UNIT/ML 10 ml (10,000 UNITS) CATHLAB/DIALYSIS DIALYSIS PRN ×4 (09:10→12:35)
[2022-08-24 12:38] VITALS: BP 110/69
== END 2022-08-24 14:55 | disposition home or self-care (01) | DRG 393 ==
LOC: ED 13:42 → SUATTDRO 19:23 → EDHOLD 19:23 → MEDTELE 08-16 15:55 → MED 08-19 20:09
PROVIDERS: ADMIT Internal Medicine; ATTEND Hospitalist

== ENCOUNTER 2022-09-01 15:58 | Inpatient (IN) ==
[2022-09-01] MEDS ORDERED: Cefepime 1 GM in Dextrose 1 GM/50 ML BAG IV ONE (16:48)
[2022-09-01] MEDS ORDERED: Vancomycin 1,500 MG in NS 0.9% 250 ml 250 ML IVPB ONE (16:48)
[2022-09-01 17:20] LABS: ABS Eosinophils 0.2 10^3/ul (0-0.6); ABS Lymphocytes 1.3 10^3/ul (1.0-4.8); ABS Monocytes 0.4 10^3/ul (0-0.8); ABS Neutrophils 2.6 10^3/ul (1.5-7.7); Eosinophil % 4.1 %; Hematocrit 31 % (35-47); Hemoglobin 9.5 g/dL (12.0-16.0); Mean Corpuscular HGB Conc 31 g/dL (31-36); Mean Corpuscular Hemoglobin 27 pg (27-31); Mean Corpuscular Volume 86 fL (80-97); Mean Platelet Volume 8.5 fL (7.4-10.4); Platelet Count 101 10^3/uL (150-450); Red Blood Count 3.58 10^6 /uL (3.70-4.87); Red Cell Distribution Width 15 % (10-15); White Blood Count 4.5 10^3/uL (3.5-10.8)
[2022-09-01 17:50] LABS: Albumin 3.4 g/dL (3.2-5.2); CRP High Sensitivity 55.22 mg/L (<2.00); Calcium 6.6 mg/dL (8.6-10.3); Globulin 3.5 g/dL (2-4); Potassium 4.7 mmol/L (3.5-5.0); Total Bilirubin 0.2 mg/dL (0.2-1.0); Total Protein 6.9 g/dL (6.4-8.9); eGFR CKD-EPI 14.9 (>60)
[2022-09-01] MEDS ORDERED: Vancomycin per Pharmacy 1 EA NOTE FOLLOW UP SCH (22:00)
[2022-09-01] MEDS: Polyethylene Glycol 3350 17 GM PACKET PO SCH (22:07)
[2022-09-01] MEDS: Buprenorp/Nalox 8-2 MG SL TAB SL SCH (22:10)
[2022-09-01] MEDS: Heparin 5000 UNITS/ML 1 mL VIAL SUBCUT SCH (22:11)
[2022-09-02] MEDS: Heparin 5000 UNITS/ML 1 mL VIAL SUBCUT SCH ×3 (06:39→22:40)
[2022-09-02 07:00] LABS: ABS Eosinophils 0.2 10^3/ul (0-0.6); ABS Lymphocytes 0.9 10^3/ul (1.0-4.8); ABS Monocytes 0.5 10^3/ul (0-0.8); ABS Neutrophils 3.3 10^3/ul (1.5-7.7); Eosinophil % 3.9 %; Hematocrit 30 % (35-47); Hemoglobin 9.2 g/dL (12.0-16.0); Lymphocyte % 18.4 %; Mean Corpuscular HGB Conc 31 g/dL (31-36); Mean Corpuscular Hemoglobin 27 pg (27-31); Mean Corpuscular Volume 88 fL (80-97); Mean Platelet Volume 9.1 fL (7.4-10.4); Nucleated Red Blood Cells % 0.1; Platelet Count 87 10^3/uL (150-450); Red Blood Count 3.43 10^6 /uL (3.70-4.87); Red Cell Distribution Width 16 % (10-15); White Blood Count 4.8 10^3/uL (3.5-10.8)
[2022-09-02 07:12] LABS: Potassium 4.8 mmol/L (3.5-5.0); Vancomycin Random 17.8 mcg/mL; eGFR CKD-EPI 13.6 (>60)
[2022-09-02 07:15] LABS: Calcium 6.3 mg/dL (8.6-10.3)
[2022-09-02] MEDS ORDERED: CALCIUM GLUCONATE 1GM/50ML NS 1 GM/50 ML BAG IV ONE ×2 (07:18→22:31)
[2022-09-02 07:54] LABS: Albumin/Globulin Ratio 0.9 (1-3); Globulin 3.3 g/dL (2-4); Total Bilirubin 0.3 mg/dL (0.2-1.0); Total Protein 6.3 g/dL (6.4-8.9)
[2022-09-02] MEDS ORDERED: Calcium Gluconate 2 GM in NS 0.9% 100 ml BAG 100 ML IV ONE (09:41)
[2022-09-02] MEDS ORDERED: Calcium Carb (TUMS) 500 mg CHEW TAB PO ONE (09:48)
[2022-09-02] MEDS: Buprenorp/Nalox 8-2 MG SL TAB SL SCH ×3 (10:46→22:37)
[2022-09-02] MEDS: Polyethylene Glycol 3350 17 GM PACKET PO SCH ×2 (10:47→22:37)
[2022-09-02 11:06] LABS: Magnesium 1.6 mg/dL (1.9-2.7)
[2022-09-02 11:12] LABS: Phosphorus 4.9 mg/dL (2.5-5.0)
[2022-09-02] MEDS ORDERED: Magnesium Sulfate IV 1GM/100ML 1 GM/100 ML BAG IV ONE (14:00)
[2022-09-02] MEDS ORDERED: Vancomycin - DIALYSIS DOSING 1 EA NOTE FOLLOW UP SCH (15:00)
[2022-09-02] MEDS: Mometasone 220 MCG MDI INH SCH (19:35)
[2022-09-02 22:28] LABS: Calcium 6.4 mg/dL (8.6-10.3); Potassium 5.2 mmol/L (3.5-5.0)
[2022-09-02 22:29] LABS: eGFR CKD-EPI 11.2 (>60)
[2022-09-03] MEDS: Heparin 5000 UNITS/ML 1 mL VIAL SUBCUT SCH ×3 (05:33→22:29)
[2022-09-03] MEDS ORDERED: Vancomycin Random Level NOTE FOLLOW UP ONE (06:00)
[2022-09-03 06:55] LABS: Albumin 2.4 g/dL (3.2-5.2); Albumin/Globulin Ratio 0.9 (1-3); Calcium 6.6 mg/dL (8.6-10.3); Globulin 2.6 g/dL (2-4); Total Bilirubin 0.2 mg/dL (0.2-1.0); Vancomycin Random 12.7 mcg/mL; eGFR CKD-EPI 10.3 (>60)
[2022-09-03 07:17] LABS: ABS Eosinophils 0.2 10^3/ul (0-0.6); ABS Lymphocytes 1.1 10^3/ul (1.0-4.8); ABS Monocytes 0.4 10^3/ul (0-0.8); ABS Neutrophils 1.5 10^3/ul (1.5-7.7); Eosinophil % 7.2 %; Hematocrit 23 % (35-47); Mean Corpuscular HGB Conc 31 g/dL (31-36); Mean Corpuscular Hemoglobin 26 pg (27-31); Mean Corpuscular Volume 86 fL (80-97); Mean Platelet Volume 9.6 fL (7.4-10.4); Platelet Count 88 10^3/uL (150-450); Red Blood Count 2.65 10^6 /uL (3.70-4.87); Red Cell Distribution Width 16 % (10-15); White Blood Count 3.2 10^3/uL (3.5-10.8)
[2022-09-03] MEDS: Polyethylene Glycol 3350 17 GM PACKET PO SCH ×2 (10:27→21:05)
[2022-09-03] MEDS: Buprenorp/Nalox 8-2 MG SL TAB SL SCH ×3 (10:28→22:28)
[2022-09-03 13:45] LABS: Body Fluid WBC 159 /mcL
[2022-09-03 14:26] LABS: Erythrocyte Sed Rate 85 mm/Hr (0-29)
[2022-09-03 15:27] LABS: Body Fluid Mono 86 %; Body Fluid Other Cells 6; Body Fluid Total Cells Counted 200
[2022-09-03 15:28] LABS: Body Fluid Appearance Cloudy; Body Fluid Color Colorless; Body Fluid Source Synovial Fluid
[2022-09-03] MEDS: Heparin 1,000 UNIT/ML 10 ml (10,000 UNITS) CATHLAB/DIALYSIS DIALYSIS PRN ×4 (16:09→19:07)
[2022-09-03] MEDS ORDERED: Vancomycin 1000 MG in NS 0.9% 250 ML IVPB ONE (18:00)
[2022-09-03] MEDS: Mometasone 220 MCG MDI INH SCH (20:13)
[2022-09-04] MEDS: Heparin 5000 UNITS/ML 1 mL VIAL SUBCUT SCH ×3 (06:14→21:22)
[2022-09-04 06:57] LABS: ABS Eosinophils 0.2 10^3/ul (0-0.6); ABS Monocytes 0.4 10^3/ul (0-0.8); ABS Neutrophils 1.6 10^3/ul (1.5-7.7); Hematocrit 23 % (35-47); Hemoglobin 7.2 g/dL (12.0-16.0); Lymphocyte % 30.2 %; Mean Corpuscular HGB Conc 31 g/dL (31-36); Mean Corpuscular Hemoglobin 27 pg (27-31); Mean Corpuscular Volume 85 fL (80-97); Platelet Count 84 10^3/uL (150-450); Red Blood Count 2.72 10^6 /uL (3.70-4.87); Red Cell Distribution Width 15 % (10-15); White Blood Count 3.2 10^3/uL (3.5-10.8)
[2022-09-04 07:34] LABS: Calcium 6.8 mg/dL (8.6-10.3); Potassium 4.5 mmol/L (3.5-5.0)
[2022-09-04] MEDS: Polyethylene Glycol 3350 17 GM PACKET PO SCH ×3 (09:06→21:25)
[2022-09-04] MEDS: Buprenorp/Nalox 8-2 MG SL TAB SL SCH ×3 (09:15→21:20)
[2022-09-04 14:53] LABS: Calcium (PTH Intact) 6.9 mg/dL (8.6-10.3)
[2022-09-04] MEDS: Mometasone 220 MCG MDI INH SCH (19:17)
[2022-09-05] MEDS: Heparin 5000 UNITS/ML 1 mL VIAL SUBCUT SCH ×3 (05:13→21:17)
[2022-09-05] MEDS ORDERED: Vancomycin Random Level NOTE FOLLOW UP ONE (06:00)
[2022-09-05 06:01] LABS: ABS Eosinophils 0.2 10^3/ul (0-0.6); ABS Lymphocytes 1.1 10^3/ul (1.0-4.8); ABS Monocytes 0.4 10^3/ul (0-0.8); ABS Neutrophils 1.3 10^3/ul (1.5-7.7); Eosinophil % 6.2 %; Hematocrit 24 % (35-47); Hemoglobin 7.4 g/dL (12.0-16.0); Lymphocyte % 37.7 %; Mean Corpuscular HGB Conc 31 g/dL (31-36); Mean Corpuscular Hemoglobin 27 pg (27-31); Mean Corpuscular Volume 86 fL (80-97); Mean Platelet Volume 9.4 fL (7.4-10.4); Nucleated Red Blood Cells % 0.1; Platelet Count 93 10^3/uL (150-450); Red Blood Count 2.79 10^6 /uL (3.70-4.87); Red Cell Distribution Width 15 % (10-15)
[2022-09-05 06:27] LABS: Calcium 7.4 mg/dL (8.6-10.3); Potassium 5.2 mmol/L (3.5-5.0); Vancomycin Random 16.3 mcg/mL; eGFR CKD-EPI 14.7 (>60)
[2022-09-05] MEDS: Senna TAB 8.6 mg TAB PO SCH ×2 (09:33→09:37)
[2022-09-05] MEDS: Buprenorp/Nalox 8-2 MG SL TAB SL SCH ×3 (09:33→21:15)
[2022-09-05] MEDS: Polyethylene Glycol 3350 17 GM PACKET PO SCH ×2 (09:34→21:17)
[2022-09-05] MEDS: Heparin 1,000 UNIT/ML 10 ml (10,000 UNITS) CATHLAB/DIALYSIS DIALYSIS PRN ×4 (13:35→16:41)
[2022-09-05] MEDS ORDERED: Vancomycin 1000 MG in NS 0.9% 250 ML IVPB ONE (18:00)
[2022-09-05] MEDS: Mometasone 220 MCG MDI INH SCH (19:21)
[2022-09-06] MEDS: Heparin 5000 UNITS/ML 1 mL VIAL SUBCUT SCH ×3 (05:17→21:09)
[2022-09-06 07:07] LABS: ABS Eosinophils 0.2 10^3/ul (0-0.6); ABS Lymphocytes 1.2 10^3/ul (1.0-4.8); ABS Monocytes 0.4 10^3/ul (0-0.8); ABS Neutrophils 1.4 10^3/ul (1.5-7.7); Eosinophil % 6.1 %; Hematocrit 25 % (35-47); Hemoglobin 7.7 g/dL (12.0-16.0); Lymphocyte % 38.4 %; Mean Corpuscular HGB Conc 31 g/dL (31-36); Mean Corpuscular Hemoglobin 26 pg (27-31); Mean Corpuscular Volume 85 fL (80-97); Mean Platelet Volume 9.5 fL (7.4-10.4); Platelet Count 103 10^3/uL (150-450); Red Blood Count 2.92 10^6 /uL (3.70-4.87); Red Cell Distribution Width 15 % (10-15); White Blood Count 3.2 10^3/uL (3.5-10.8)
[2022-09-06 07:23] LABS: Calcium 7.7 mg/dL (8.6-10.3); Magnesium 1.8 mg/dL (1.9-2.7); Potassium 4.9 mmol/L (3.5-5.0); eGFR CKD-EPI 20.7 (>60)
[2022-09-06] MEDS: Polyethylene Glycol 3350 17 GM PACKET PO SCH ×2 (08:40→21:02)
[2022-09-06] MEDS: Senna TAB 8.6 mg TAB PO SCH ×2 (08:45→08:49)
[2022-09-06] MEDS: Buprenorp/Nalox 8-2 MG SL TAB SL SCH ×3 (08:50→21:01)
[2022-09-06 18:18] LABS: Anaplasma phagocytophilum Negative (Negative); B. miyamotoi PCR, B Negative (Negative); Babesia divergens/MO-1 Negative (Negative); Babesia ducani Negative (Negative); Ehrlichia chaffeensis Negative (Negative); Ehrlichia ewingii/canis Negative (Negative); Ehrlichia muris eauclairensis Negative (Negative)
[2022-09-06] MEDS: Mometasone 220 MCG MDI INH SCH (20:01)
[2022-09-06 22:02] LABS: Urine Appearance Cloudy; Urine Bilirubin Negative (Negative); Urine Blood 1+ (Negative); Urine Color Yellow; Urine Glucose Negative (Negative); Urine Ketones Negative (Negative); Urine Nitrite Negative (Negative); Urine Protein 2+(100 mg/dL) (Negative); Urine Specific Gravity 1.011 (1.002-1.030); Urine Urobilinogen Negative (Negative)
[2022-09-06 22:14] LABS: Urine Bacteria 1+ (Absent); Urine Red Blood Cell Trace(0-2/hpf) (Absent); Urine Squamous Epithelial Cell Present (Absent); Urine White Blood Cell Trace(0-5/hpf) (Absent)
[2022-09-06 22:23] LABS: B. garinii/B. afzellii PCR Negative (Negative); Lyme Disease Source SYNOVIAL FLUID
[2022-09-07] MEDS: Heparin 5000 UNITS/ML 1 mL VIAL SUBCUT SCH ×3 (05:11→21:23)
[2022-09-07] MEDS ORDERED: Vancomycin Random Level NOTE FOLLOW UP ONE (06:00)
[2022-09-07 06:19] LABS: Calcium 8.1 mg/dL (8.6-10.3); Magnesium 1.9 mg/dL (1.9-2.7)
[2022-09-07 06:20] LABS: Potassium 5.1 mmol/L (3.5-5.0)
[2022-09-07 06:25] LABS: eGFR CKD-EPI 16.9 (>60)
[2022-09-07 06:26] LABS: ABS Eosinophils 0.2 10^3/ul (0-0.6); ABS Monocytes 0.3 10^3/ul (0-0.8); ABS Neutrophils 1.4 10^3/ul (1.5-7.7); Eosinophil % 6.8 %; Hematocrit 27 % (35-47); Hemoglobin 8.2 g/dL (12.0-16.0); Lymphocyte % 33.2 %; Mean Corpuscular HGB Conc 31 g/dL (31-36); Mean Corpuscular Hemoglobin 27 pg (27-31); Mean Corpuscular Volume 87 fL (80-97); Mean Platelet Volume 9.4 fL (7.4-10.4); Nucleated Red Blood Cells % 0.1; Platelet Count 108 10^3/uL (150-450); Red Blood Count 3.04 10^6 /uL (3.70-4.87); Red Cell Distribution Width 15 % (10-15); White Blood Count 2.9 10^3/uL (3.5-10.8)
[2022-09-07] MEDS: Buprenorp/Nalox 8-2 MG SL TAB SL SCH ×3 (09:09→21:16)
[2022-09-07] MEDS: Polyethylene Glycol 3350 17 GM PACKET PO SCH ×2 (09:10→21:19)
[2022-09-07] MEDS: Senna TAB 8.6 mg TAB PO SCH (09:10)
[2022-09-07] MEDS: Heparin 1,000 UNIT/ML 10 ml (10,000 UNITS) CATHLAB/DIALYSIS DIALYSIS PRN ×4 (14:10→17:15)
[2022-09-07] MEDS: Mometasone 220 MCG MDI INH SCH (19:06)
[2022-09-08] MEDS: Heparin 5000 UNITS/ML 1 mL VIAL SUBCUT SCH (05:41)
[2022-09-08] MEDS: Buprenorp/Nalox 8-2 MG SL TAB SL SCH (09:01)
[2022-09-08] MEDS: Polyethylene Glycol 3350 17 GM PACKET PO SCH (09:02)
[2022-09-08] MEDS: Senna TAB 8.6 mg TAB PO SCH (09:03)
[2022-09-08 11:57] VITALS: BP 117/77
[2022-09-08] MEDS ORDERED: Heparin *DIALYSIS* ONLY 1,000 UNITS/ML VIAL DIALYSIS ONE (13:00)
== END 2022-09-08 13:25 | disposition home or self-care (01) | DRG 602 ==
LOC: ED 15:58 → SUATTDRO 20:35 → EDHOLD 20:35 → MED 22:28
PROVIDERS: ADMIT Internal Medicine; ATTEND Internal Medicine

== ENCOUNTER 2022-09-29 14:17 | Inpatient (IN) ==
[2022-09-29 16:41] LABS: ABS Basophils 0.1 10^3/ul (0-0.2); ABS Eosinophils 0.2 10^3/ul (0-0.6); ABS Lymphocytes 1.3 10^3/ul (1.0-4.8); ABS Monocytes 0.4 10^3/ul (0-0.8); ABS Neutrophils 2.3 10^3/ul (1.5-7.7); Eosinophil % 5.3 %; Hematocrit 29 % (35-47); Hemoglobin 8.8 g/dL (12.0-16.0); Lymphocyte % 30.8 %; Mean Corpuscular HGB Conc 30 g/dL (31-36); Mean Corpuscular Hemoglobin 26 pg (27-31); Mean Corpuscular Volume 86 fL (80-97); Mean Platelet Volume 9.1 fL (7.4-10.4); Platelet Count 115 10^3/uL (150-450); Red Blood Count 3.37 10^6 /uL (3.70-4.87); Red Cell Distribution Width 16 % (10-15); White Blood Count 4.3 10^3/uL (3.5-10.8)
[2022-09-29 16:58] LABS: Activated Partial Thrombo Time 36.4 seconds (26.0-38.0); INR 1.08 (0.88-1.18)
[2022-09-29 17:13] LABS: Albumin 3.6 g/dL (3.2-5.2); C Reactive Protein 19.59 mg/L (<8.01); Globulin 3.7 g/dL (2-4); Total Bilirubin 0.2 mg/dL (0.2-1.0); Total Protein 7.3 g/dL (6.4-8.9); eGFR CKD-EPI 14.4 (>60)
[2022-09-29] MEDS ORDERED: Cefepime 1 GM in Dextrose 1 GM/50 ML BAG IV ONE (17:50)
[2022-09-29] MEDS ORDERED: Morphine 4 MG/ML VIAL (1 ml) IV ONE (18:41)
[2022-09-29 18:44] LABS: High Sensitivity Troponin 1 Hr 3 pg/mL (<15)
[2022-09-29] MEDS ORDERED: Vancomycin 1,000 MG in NS 0.9% 250 ml 250 ML IVPB ONE (19:00)
[2022-09-29] MEDS: Heparin 5000 UNITS/ML 1 mL VIAL SUBCUT SCH (22:11)
[2022-09-30] MEDS ORDERED: Dextrose 50% Syringe 50 ml 25 GM/50 ML SYRINGE IV PUSH PRN (03:24)
[2022-09-30] MEDS: Heparin 5000 UNITS/ML 1 mL VIAL SUBCUT SCH ×3 (05:19→22:13)
[2022-09-30] MEDS ORDERED: Vancomycin per Pharmacy 1 EA NOTE FOLLOW UP SCH (06:00)
[2022-09-30 07:28] LABS: ABS Eosinophils 0.2 10^3/ul (0-0.6); ABS Lymphocytes 0.8 10^3/ul (1.0-4.8); ABS Monocytes 0.4 10^3/ul (0-0.8); ABS Neutrophils 3.2 10^3/ul (1.5-7.7); Hematocrit 24 % (35-47); Hemoglobin 7.9 g/dL (12.0-16.0); Lymphocyte % 17.2 %; Mean Corpuscular HGB Conc 33 g/dL (31-36); Mean Corpuscular Hemoglobin 27 pg (27-31); Mean Corpuscular Volume 83 fL (80-97); Mean Platelet Volume 8.7 fL (7.4-10.4); Nucleated Red Blood Cells % 0.1; Platelet Count 112 10^3/uL (150-450); Red Blood Count 2.92 10^6 /uL (3.70-4.87); Red Cell Distribution Width 15 % (10-15); White Blood Count 4.7 10^3/uL (3.5-10.8)
[2022-09-30 07:35] LABS: Activated Partial Thrombo Time 34.3 seconds (26.0-38.0); INR 1.16 (0.88-1.18)
[2022-09-30 07:44] LABS: Magnesium 1.7 mg/dL (1.9-2.7)
[2022-09-30 07:45] LABS: Potassium 5.9 mmol/L (3.5-5.0)
[2022-09-30 07:46] LABS: Calcium 6.1 mg/dL (8.6-10.3)
[2022-09-30] MEDS: Buprenorp/Nalox 8-2 MG SL TAB SL SCH ×3 (09:30→22:12)
[2022-09-30] MEDS ORDERED: SODIUM ZIRCONIUM CYCLOSILICATE 10 GM PACKET PO ONE (10:07)
[2022-09-30] MEDS ORDERED: Calcium Gluconate 2 GM in NS 0.9% 100 ml BAG 100 ML IV ONE (10:07)
[2022-09-30 10:49] LABS: TSH Ultra Thyroid Stim Horm 12.72 mcIU/mL (0.34-5.60)
[2022-09-30] MEDS: cefTRIAXone 1 gm/50 mL D5W 1 GM/50 ML BAG IV SCH (14:09)
[2022-09-30] MEDS ORDERED: Vancomycin 1000 MG in NS 0.9% 250 ML IVPB ONE (15:30)
[2022-09-30 16:32] LABS: Free T4 0.72 ng/dL (0.61-1.12)
[2022-09-30 20:46] LABS: Calcium 7.3 mg/dL (8.6-10.3); eGFR CKD-EPI 10.8 (>60)
[2022-09-30 20:47] LABS: Potassium 5.1 mmol/L (3.5-5.0)
[2022-09-30] MEDS ORDERED: Cefepime 0.5 GM in NS 0.9% 50 ML 50 ML IVPB SCH (21:00)
[2022-09-30] MEDS ORDERED: Cefepime ADVAN 0.5 GM in NS 0.9% 50 ML 50 ML IVPB SCH (21:00)
[2022-10-01] MEDS: Heparin 5000 UNITS/ML 1 mL VIAL SUBCUT SCH ×3 (05:50→21:16)
[2022-10-01] MEDS ORDERED: Vancomycin Random Level NOTE FOLLOW UP ONE (06:00)
[2022-10-01 06:31] LABS: ABS Eosinophils 0.3 10^3/ul (0-0.6); ABS Lymphocytes 0.9 10^3/ul (1.0-4.8); ABS Monocytes 0.3 10^3/ul (0-0.8); ABS Neutrophils 1.5 10^3/ul (1.5-7.7); Eosinophil % 9.1 %; Hematocrit 24 % (35-47); Hemoglobin 7.6 g/dL (12.0-16.0); Lymphocyte % 29.9 %; Mean Corpuscular HGB Conc 32 g/dL (31-36); Mean Corpuscular Hemoglobin 27 pg (27-31); Mean Corpuscular Volume 84 fL (80-97); Mean Platelet Volume 9.2 fL (7.4-10.4); Platelet Count 105 10^3/uL (150-450); Red Blood Count 2.81 10^6 /uL (3.70-4.87); Red Cell Distribution Width 16 % (10-15); White Blood Count 3.1 10^3/uL (3.5-10.8)
[2022-10-01 06:49] LABS: Magnesium 1.9 mg/dL (1.9-2.7); Vancomycin Random 17.6 mcg/mL; eGFR CKD-EPI 10.3 (>60)
[2022-10-01] MEDS: Mometasone 110 MCG MDI INH SCH (07:49)
[2022-10-01] MEDS: Buprenorp/Nalox 8-2 MG SL TAB SL SCH ×3 (09:10→21:15)
[2022-10-01] MEDS: cefTRIAXone 1 gm/50 mL D5W 1 GM/50 ML BAG IV SCH (09:15)
[2022-10-01] MEDS ORDERED: Benzocaine (DENTAL) 10% TOP.GEL TOPICAL PRN (13:55)
[2022-10-02] MEDS: Heparin 5000 UNITS/ML 1 mL VIAL SUBCUT SCH ×3 (06:11→20:50)
[2022-10-02 08:10] LABS: ABS Eosinophils 0.3 10^3/ul (0-0.6); ABS Lymphocytes 1.1 10^3/ul (1.0-4.8); ABS Monocytes 0.4 10^3/ul (0-0.8); ABS Neutrophils 1.3 10^3/ul (1.5-7.7); Eosinophil % 9.8 %; Hematocrit 24 % (35-47); Hemoglobin 7.6 g/dL (12.0-16.0); Lymphocyte % 36.4 %; Mean Corpuscular HGB Conc 32 g/dL (31-36); Mean Corpuscular Hemoglobin 27 pg (27-31); Mean Corpuscular Volume 84 fL (80-97); Mean Platelet Volume 8.8 fL (7.4-10.4); Nucleated Red Blood Cells % 0.1; Platelet Count 113 10^3/uL (150-450); Red Blood Count 2.84 10^6 /uL (3.70-4.87); Red Cell Distribution Width 16 % (10-15); White Blood Count 3.1 10^3/uL (3.5-10.8)
[2022-10-02] MEDS: Mometasone 110 MCG MDI INH SCH (08:11)
[2022-10-02 08:29] LABS: Calcium 7.1 mg/dL (8.6-10.3); eGFR CKD-EPI 11.6 (>60)
[2022-10-02 08:30] LABS: Potassium 5.2 mmol/L (3.5-5.0)
[2022-10-02] MEDS: Buprenorp/Nalox 8-2 MG SL TAB SL SCH ×3 (09:51→20:50)
[2022-10-02] MEDS: cefTRIAXone 1 gm/50 mL D5W 1 GM/50 ML BAG IV SCH (09:52)
[2022-10-02 11:50] LABS: Hepatitis B Surface Antigen Nonreactive (Nonreactive)
[2022-10-02 12:07] LABS: Hepatitis B Surface Ab Not Immune (Immune)
[2022-10-02] MEDS: Heparin 1,000 UNIT/ML 10 ml (10,000 UNITS) CATHLAB/DIALYSIS DIALYSIS ONE ×4 (14:15→17:38)
[2022-10-03] MEDS: Heparin 5000 UNITS/ML 1 mL VIAL SUBCUT SCH ×3 (06:28→20:29)
[2022-10-03] MEDS: Mometasone 110 MCG MDI INH SCH (08:17)
[2022-10-03] MEDS: Buprenorp/Nalox 8-2 MG SL TAB SL SCH ×3 (08:33→20:28)
[2022-10-03] MEDS: cefTRIAXone 1 gm/50 mL D5W 1 GM/50 ML BAG IV SCH (08:38)
[2022-10-04] MEDS: Heparin 5000 UNITS/ML 1 mL VIAL SUBCUT SCH ×2 (05:49→13:15)
[2022-10-04] MEDS: Buprenorp/Nalox 8-2 MG SL TAB SL SCH ×2 (08:41→13:18)
[2022-10-04] MEDS: cefTRIAXone 1 gm/50 mL D5W 1 GM/50 ML BAG IV SCH (08:52)
[2022-10-04 11:14] VITALS: BP 119/89
[2022-10-04] MEDS: Mometasone 110 MCG MDI INH SCH (11:48)
== END 2022-10-04 14:45 | disposition home or self-care (01) | DRG 602 ==
LOC: ED 14:17 → SUATTDRO 19:12 → EDHOLD 19:12 → MED 09-30 00:03
PROVIDERS: ADMIT Internal Medicine; ATTEND Internal Medicine

== ENCOUNTER 2022-10-09 16:09 | Inpatient (IN) ==
[2022-10-09 16:55] LABS: ABS Eosinophils 0.4 10^3/ul (0-0.6); ABS Lymphocytes 1.3 10^3/ul (1.0-4.8); ABS Monocytes 0.4 10^3/ul (0-0.8); ABS Neutrophils 2.6 10^3/ul (1.5-7.7); Eosinophil % 7.7 %; Hematocrit 28 % (35-47); Hemoglobin 8.4 g/dL (12.0-16.0); Lymphocyte % 28.2 %; Mean Corpuscular HGB Conc 30 g/dL (31-36); Mean Corpuscular Hemoglobin 26 pg (27-31); Mean Corpuscular Volume 87 fL (80-97); Mean Platelet Volume 9.1 fL (7.4-10.4); Nucleated Red Blood Cells % 0.1; Platelet Count 141 10^3/uL (150-450); Red Blood Count 3.19 10^6 /uL (3.70-4.87); Red Cell Distribution Width 16 % (10-15); White Blood Count 4.7 10^3/uL (3.5-10.8)
[2022-10-09 18:10] LABS: Albumin 3.3 g/dL (3.2-5.2); CO2 Carbon Dioxide 22 mmol/L (22-32); Calcium 7.3 mg/dL (8.6-10.3); Sodium 140 mmol/L (135-145)
[2022-10-09 18:16] LABS: ALT 5 U/L (7-52); Alkaline Phosphatase 79 U/L (35-149); Blood Urea Nitrogen 54 mg/dL (6-24); Globulin 3.2 g/dL (2-4); Glucose 120 mg/dL (70-100); Total Protein 6.5 g/dL (6.4-8.9); eGFR CKD-EPI 13.3 (>60)
[2022-10-09 18:33] LABS: Anion Gap 6 mmol/L (2-11); Chloride 112 mmol/L (101-111)
[2022-10-09 20:39] LABS: Calcium 7.4 mg/dL (8.6-10.3)
[2022-10-09] MEDS: cefTRIAXone 1 gm/50 mL D5W 1 GM/50 ML BAG IV SCH (20:40)
[2022-10-09 20:41] LABS: Potassium 5.2 mmol/L (3.5-5.0)
[2022-10-09] MEDS: Buprenorp/Nalox 8-2 MG SL TAB SL SCH (20:43)
[2022-10-09 20:44] LABS: C Reactive Protein 36.51 mg/L (<8.01)
[2022-10-09 20:45] LABS: Phosphorus 5.1 mg/dL (2.5-5.0); eGFR CKD-EPI 13.5 (>60)
[2022-10-09] MEDS ORDERED: Polyethyl Glycol/Propylene Gly OPHTH.SOLN BOTH EYES PRN (22:21)
[2022-10-09] MEDS ORDERED: CALCIUM GLUCONATE 1GM/50ML NS 1 GM/50 ML BAG IV ONE (22:27)
[2022-10-09] MEDS: POLYETHYLENE GLYCOL 400 BOTH EYES PRN (22:54)
[2022-10-09] MEDS: [UNRECOGNIZED DRUG - OTHER] BOTH EYES PRN (22:54)
[2022-10-10 05:30] LABS: Hepatitis B Surface Antigen Nonreactive (Nonreactive)
[2022-10-10 05:35] LABS: Hepatitis A Ab IgM Negative (Negative); Hepatitis B Core IgM Nonreactive (Nonreactive)
[2022-10-10 05:47] LABS: Hepatitis C Antibody Negative (Negative)
[2022-10-10] MEDS: [UNRECOGNIZED DRUG - OTHER] BOTH EYES PRN (05:51)
[2022-10-10] MEDS: POLYETHYLENE GLYCOL 400 BOTH EYES PRN (05:51)
[2022-10-10 06:49] LABS: Calcium 7.3 mg/dL (8.6-10.3)
[2022-10-10 06:55] LABS: eGFR CKD-EPI 13.7 (>60)
[2022-10-10 06:59] LABS: Potassium 5.9 mmol/L (3.5-5.0)
[2022-10-10 07:28] LABS: ABS Eosinophils 0.3 10^3/ul (0-0.6); ABS Lymphocytes 1.5 10^3/ul (1.0-4.8); ABS Monocytes 0.4 10^3/ul (0-0.8); ABS Neutrophils 1.8 10^3/ul (1.5-7.7); Eosinophil % 7.6 %; Hematocrit 29 % (35-47); Hemoglobin 8.2 g/dL (12.0-16.0); Lymphocyte % 35.5 %; Mean Corpuscular HGB Conc 29 g/dL (31-36); Mean Corpuscular Hemoglobin 26 pg (27-31); Mean Corpuscular Volume 91 fL (80-97); Mean Platelet Volume 8.8 fL (7.4-10.4); Nucleated Red Blood Cells % 0.2; Platelet Count 129 10^3/uL (150-450); Red Blood Count 3.13 10^6 /uL (3.70-4.87); Red Cell Distribution Width 17 % (10-15); White Blood Count 4.1 10^3/uL (3.5-10.8)
[2022-10-10] MEDS: Buprenorp/Nalox 8-2 MG SL TAB SL SCH ×3 (08:05→20:14)
[2022-10-10] MEDS: Heparin 1,000 UNIT/ML 10 ml (10,000 UNITS) CATHLAB/DIALYSIS DIALYSIS SCH ×5 (08:44→13:05)
[2022-10-10] MEDS ORDERED: Influenza vaccine *QUAD* *2022-23* 0.5 ML SYRINGE IM ONE (09:00)
[2022-10-10] MEDS ORDERED: Pneumococcal Vac 23-Polyvalent IM ONE (09:00)
[2022-10-10] MEDS: Mometasone 220 MCG MDI INH SCH (19:06)
[2022-10-10] MEDS: cefTRIAXone 1 gm/50 mL D5W 1 GM/50 ML BAG IV SCH (19:37)
[2022-10-11 06:19] LABS: Albumin 3.1 g/dL (3.2-5.2); Calcium 7.1 mg/dL (8.6-10.3); Globulin 3.1 g/dL (2-4); Total Bilirubin 0.2 mg/dL (0.2-1.0); Total Protein 6.2 g/dL (6.4-8.9); eGFR CKD-EPI 17.3 (>60)
[2022-10-11 06:23] LABS: ABS Basophils 0.1 10^3/ul (0-0.2); ABS Eosinophils 0.5 10^3/ul (0-0.6); ABS Lymphocytes 2.4 10^3/ul (1.0-4.8); ABS Monocytes 0.8 10^3/ul (0-0.8); ABS Neutrophils 3.5 10^3/ul (1.5-7.7); Eosinophil % 6.4 %; Hematocrit 27 % (35-47); Hemoglobin 8.3 g/dL (12.0-16.0); Lymphocyte % 33.1 %; Mean Corpuscular HGB Conc 31 g/dL (31-36); Mean Corpuscular Hemoglobin 27 pg (27-31); Mean Corpuscular Volume 86 fL (80-97); Red Blood Count 3.08 10^6 /uL (3.70-4.87); Red Cell Distribution Width 16 % (10-15); White Blood Count 7.3 10^3/uL (3.5-10.8)
[2022-10-11] MEDS: Heparin 1,000 UNIT/ML 10 ml (10,000 UNITS) CATHLAB/DIALYSIS DIALYSIS SCH ×5 (07:50→12:17)
[2022-10-11 08:49] LABS: Mean Platelet Volume 9.1 fL (7.4-10.4); Platelet Count 152 10^3/uL (150-450)
[2022-10-11] MEDS: Buprenorp/Nalox 8-2 MG SL TAB SL SCH ×3 (09:00→20:15)
[2022-10-11 10:48] LABS: Hepatitis B Surface Ab Not Immune (Immune)
[2022-10-11 13:14] LABS: C Reactive Protein 25.62 mg/L (<8.01)
[2022-10-11] MEDS: Mometasone 220 MCG MDI INH SCH (20:30)
[2022-10-12 07:16] LABS: CO2 Carbon Dioxide 18 mmol/L (22-32); Calcium 7.5 mg/dL (8.6-10.3); Chloride 102 mmol/L (101-111); Sodium 133 mmol/L (135-145)
[2022-10-12 07:17] LABS: ABS Eosinophils 0.3 10^3/ul (0-0.6); ABS Lymphocytes 1.4 10^3/ul (1.0-4.8); ABS Monocytes 0.4 10^3/ul (0-0.8); ABS Neutrophils 1.7 10^3/ul (1.5-7.7); Eosinophil % 7.2 %; Hematocrit 31 % (35-47); Hemoglobin 9.4 g/dL (12.0-16.0); Lymphocyte % 36.3 %; Mean Corpuscular HGB Conc 31 g/dL (31-36); Mean Corpuscular Hemoglobin 27 pg (27-31); Mean Corpuscular Volume 86 fL (80-97); Mean Platelet Volume 8.9 fL (7.4-10.4); Nucleated Red Blood Cells % 0.1; Platelet Count 116 10^3/uL (150-450); Red Blood Count 3.54 10^6 /uL (3.70-4.87); Red Cell Distribution Width 16 % (10-15); White Blood Count 3.8 10^3/uL (3.5-10.8)
[2022-10-12 07:18] LABS: Anion Gap 13 mmol/L (2-11)
[2022-10-12 07:22] LABS: Blood Urea Nitrogen 21 mg/dL (6-24); Glucose 112 mg/dL (70-100); eGFR CKD-EPI 18.2 (>60)
[2022-10-12] MEDS: Buprenorp/Nalox 8-2 MG SL TAB SL SCH ×2 (07:59→20:11)
[2022-10-12] MEDS: Heparin 1,000 UNIT/ML 10 ml (10,000 UNITS) CATHLAB/DIALYSIS DIALYSIS SCH ×5 (09:47→13:24)
[2022-10-12] MEDS: Mometasone 220 MCG MDI INH SCH (20:37)
[2022-10-13] MEDS: Buprenorp/Nalox 8-2 MG SL TAB SL SCH (07:52)
[2022-10-13 08:08] VITALS: BP 108/66
== END 2022-10-13 12:35 | disposition home or self-care (01) | DRG 682 ==
LOC: ED 16:09 → EDHOLD 17:45 → SUATTDRO 17:45 → MEDTELE 18:32
PROVIDERS: ADMIT Internal Medicine; ATTEND Internal Medicine

== ENCOUNTER 2022-11-05 18:03 | Inpatient (IN) ==
[2022-11-05 20:22] LABS: ABS Basophils 0.1 10^3/ul (0-0.2); ABS Eosinophils 0.2 10^3/ul (0-0.6); ABS Lymphocytes 1.6 10^3/ul (1.0-4.8); ABS Monocytes 0.3 10^3/ul (0-0.8); ABS Neutrophils 2.3 10^3/ul (1.5-7.7); Eosinophil % 5.5 %; Hematocrit 34 % (35-47); Hemoglobin 10.4 g/dL (12.0-16.0); Lymphocyte % 35.5 %; Mean Corpuscular HGB Conc 31 g/dL (31-36); Mean Corpuscular Hemoglobin 27 pg (27-31); Mean Corpuscular Volume 86 fL (80-97); Mean Platelet Volume 8.6 fL (7.4-10.4); Nucleated Red Blood Cells % 0.1; Platelet Count 122 10^3/uL (150-450); Red Blood Count 3.88 10^6 /uL (3.70-4.87); Red Cell Distribution Width 16 % (10-15); White Blood Count 4.5 10^3/uL (3.5-10.8)
[2022-11-05 21:01] LABS: Albumin 3.6 g/dL (3.2-5.2); Albumin/Globulin Ratio 1.1 (1-3); C Reactive Protein 8.43 mg/L (<8.01); Calcium 7.1 mg/dL (8.6-10.3); Creatinine, Serum 3.7 mg/dL (0.51-0.95); Globulin 3.3 g/dL (2-4); Total Bilirubin 0.2 mg/dL (0.2-1.0); Total Protein 6.9 g/dL (6.4-8.9); eGFR CKD-EPI 13.4 (>60)
[2022-11-05 21:10] LABS: Potassium 5.4 mmol/L (3.5-5.0)
[2022-11-05 21:41] LABS: Urine Appearance Cloudy; Urine Bilirubin Negative (Negative); Urine Blood 1+ (Negative); Urine Color Yellow; Urine Glucose Negative (Negative); Urine Ketones Negative (Negative); Urine Nitrite Negative (Negative); Urine Protein 3+(>=500 mg/dL) (Negative); Urine Specific Gravity 1.011 (1.002-1.030); Urine Urobilinogen Negative (Negative)
[2022-11-05 21:46] LABS: Urine Bacteria 2+ (Absent); Urine Red Blood Cell 3+(>10/hpf) (Absent); Urine Squamous Epithelial Cell Present (Absent); Urine White Blood Cell 3+(>20/hpf) (Absent); Urine Yeast Present (Absent)
[2022-11-05] MEDS ORDERED: cefTRIAXone 1 gm/50 mL D5W 1 GM/50 ML BAG IV SCH (23:00)
[2022-11-06] MEDS ORDERED: Senna TAB 8.6 mg TAB PO PRN (01:06)
[2022-11-06] MEDS ORDERED: Magnesium Hydroxide LIQ 30 ML UDC PO PRN (01:06)
[2022-11-06] MEDS: Heparin 5000 UNITS/ML 1 mL VIAL SUBCUT SCH ×3 (06:55→14:47)
[2022-11-06] MEDS ORDERED: Albumin Human 25% 25 GM/100 ML BTL IV PRN (07:19)
[2022-11-06 08:07] LABS: CO2 Carbon Dioxide 22 mmol/L (22-32); Calcium 6.9 mg/dL (8.6-10.3); Chloride 111 mmol/L (101-111); Sodium 138 mmol/L (135-145)
[2022-11-06 08:08] LABS: Anion Gap 5 mmol/L (2-11)
[2022-11-06 08:13] LABS: Blood Urea Nitrogen 53 mg/dL (6-24); Creatinine, Serum 3.72 mg/dL (0.51-0.95); Glucose 93 mg/dL (70-100); eGFR CKD-EPI 13.3 (>60)
[2022-11-06] MEDS: Heparin 1,000 UNIT/ML 10 ml (10,000 UNITS) CATHLAB/DIALYSIS DIALYSIS PRN ×4 (10:25→13:59)
[2022-11-06 13:59] VITALS: BP 132/86
== END 2022-11-06 16:10 | disposition home or self-care (01) | DRG 304 ==
LOC: ED 18:03 → EDHOLD 22:34 → SUATTDRO 22:34 → MEDTELE 11-06 00:33
PROVIDERS: ADMIT Internal Medicine; ATTEND Internal Medicine Hematology & Oncology